=== PATIENT | female | born 1955 | race Caucasian/White ===

== ENCOUNTER 2024-09-08 10:54 | Outpatient (AMB) | payer MEDICARE, SELFPAY ==
--- OUTSIDE RECORDS SUMMARY | 2024-09-08 11:05 | XMS_ITS | Data Portability ---
Author Organization [facility], Main Office Address [address] [facility] [address] [place] [id number] Care Team Providers Care Director Chemistry Name Role Phone [facility] Sports [facility] ine ARANZA CARDENAS Educational Guidance Counselor [phone] RODRÍGUEZ ROSARIO 7Th Grade Teacher IRASEMA HART Cardiac Exercise Specialist ROSARIO BRITT Primary Care Provider Assessment Encounter Date Assessment Date Assessment LastModified by Organization Details LastModified Time 06/15/2022 06/15/2022 This service was provided using telemedicine. Patient consented to video & audio visit Patient was located in the [facility]. Provider was located in the office. No other persons participated in the telemedicine visit except for the patient unless otherwise indicated here. Total time of visit was 23 minutes. Not available 06/15/2022 10:53:43 09/29/2023 09/29/2023 Discussed with patient the signs/symptoms warranted for a return to office visit and/or an ER visit. Patient understood and agreed with the plan. [email or web address] Not available 09/29/2023 11:05:57 07/29/2024 07/29/2024 Based on the patient's history and physical exam, the clinical impression is lumbago with sciatica. Her blood pressure is elevated, likely due to pain. However, given the diagnosis of hypertension, I am avoiding NSAIDs. -Prescribed a Medrol Dose Pack (oral methylprednisolo ne) to reduce inflammation. -Prescribed gabapentin for symptomatic relief. -Patient has taken gabapentin in the past. -Discussed risk of sedation; patient was advised not to operate motor vehicles or heavy machinery until she knows how the medication affects her. -Referred to physical therapy for core strengthening and pain management. -Patient is to follow up with her primary provider in 2 months, by which time she should have completed at least 6 weeks of PT. If symptoms persist beyond PT, we will consider: -Lumbar spine X-ray and/or MRI to further evaluate structural causes. -Based on imaging results, possible referral to physiatry or neurosurgery. -If imaging is noncontributory, further evaluation with EMG and workup for peripheral neuropathy may be considered. -However, the radiating pattern of pain suggests a spinal etiology rather than primary peripheral neuropathy. Regarding elevated blood pressure: -Patient is asymptomatic and currently on HCTZ. -Plan is to re-evaluate in 2 months, with the expectation that pain improvement may reduce BP as well. Red flag symptoms were reviewed. Patient was advised to seek emergency care if she experiences: -New or worsening numbness or weakness in the legs -Loss of bowel or bladder control -Inability to walk -Severe or rapidly worsening pain Patient understands and agrees with the plan. [email or web address] Not available 07/29/2024 10:35:19 Plan of Treatment Reminders Order Date Submit Date Provider Last Modified By Organization Details Last Modified Time Details Appointments None recor ded. Lab vitam in B12 + folat e, serum or blood 2023 [facility] (Centralized Electronic Ordering - All Locations), Patient Can Go To The Location Of Their Choice, [id number] 4 06:09:22 lipid panel , serum 2023 024 [facility], [address], [place], [address], 4 06:09:21 BMP, serum or plasm a 2023 024 [facility], [address], [place], [address], 4 06:09:20 CBC w/ auto diff 2023 [facility], [address], [place], [address], 4 06:09:19 TSH, ultra -sens itive , serum 2023 024 [facility], [address], [place], [address], 4 06:09:23 lipid panel , serum 2022 023 [facility], [address], [address], [place], [address], 3 15:15:44 BMP, serum or plasm a 2022 023 [facility], [address], [address], [place], [address], 3 15:15:42 CBC w/ auto diff 2022 023 [facility], [address], [address], [place], [address], 3 14:55:04 TSH, serum or plasm a 2022 023 [facility], [address], [address], [place], [address], 3 15:33:42 Referral physi carlos susana pist refer ral - Pleas e see for LBP 2024 025 [facility]MA Not available 5 06:07:46 Procedures colon oscop y akila rice (PROC ) - pt would like to be booke d in mid Febua ry [address] [facility], [address] [place], [address], 5 11:39:57 Surgeries None recor ded. Imaging MAMMO , akila rice, bilat eral 2023 024 [email or web address] Not available 5 10:57:59 XR, hip, unila teral , 2 or 3 view - left sided hip pain- sciat ica 2023 024 [facility], [address], [place], [address], 4 19:17:47 Medication Orders Medro l (Mahamed) 4 mg table ts in a dose pack 2024 025 [id number], [address] [facility], [place], [place], [id number], 5 10:23:22 gabap entin 100 mg capsu le 2024 025 [facility] #[id number], [address] [facility], [place], [place], [id number], 5 10:23:25 eryth romyc in 5 mg/gr am (0.5 %) eye ointm ent 2022 023 [email or web address] os [facility] #[id number], [address] [facility], [place], [place], [id number], 4 11:00:52 Patient TargetsNo targets recorded. Patient Instructions Encounter Date Encounter Id Patient Instructions Last Modified By Organization Details Last Modified Time 06/05/2022 [id number] well visit, over 65: care instructions Not available 06/05/2022 11:33:14 fall prevention education Not available 06/05/2022 11:33:14 06/15/2022 [id number] styes and chalazia: care instructions Not available 06/15/2022 10:54:13 12/17/2023 [id number] advance care planning: care instructions Not available 12/17/2023 11:02:03 osteoporosis: care instructions Not available 12/17/2023 11:02:04 well visit, over 65: care instructions Not available 12/17/2023 11:02:05 preventing falls : care instructions Not available 12/17/2023 11:02:05 colon cancer screening: care instructions Not available 12/17/2023 11:02:04 high blood pressure: care instructions Not available 12/17/2023 11:02:03 learning about high blood pressure Not available 12/17/2023 11:02:04 07/29/2024 [id number] high blood pressure: care instructions [email or web address] Not available 07/29/2024 10:23:10 learning about high blood pressure [email or web address] Not available 07/29/2024 10:23:10 Reason for Referral Physical Therapist Referral for Acute back pain with sciatica Please see for LBP Referring Physician: Kassandra Ruiz, Family Medicine, Encounter Date: 07/29/2024 Results Created Date Observation Date Name Description Value Unit Range Abnormal Flag Note LastModifiedBy Organization Detail LastModifiedTime 03/16/19 25 03/14/2024 TISSU E EXAM final diagnosis Cecum, polyp: Tubul ar adeno ma. Elect basia cramer d by Alethea el MD on 2024 at 10:54 AM Not Available [address], [address], 03/16/2024 10:56:36 03/16/19 25 03/14/2024 TISSU E EXAM clinical information Screen ing for colore ctal malign ant neopla sm Polyp Not Available [address], [address], 03/16/2024 10:56:36 03/16/19 25 03/14/2024 TISSU E EXAM gross description A. Large Intest ine, Cecum, polyp: Label ed ceca l polyp . Recei raad in forma ingris, is an appro ximat lorene 0.7 cm, in great est diame ters, rubbe ry, thomas, polyp oid tissu e, which is inked black at the base, wrapp ed in paper and submi tted in toto in one casse tte, one piece , multi ple level s. dvb/D G Not Available [address], [address], 03/16/2024 10:56:36 03/16/19 25 03/14/2024 TISSU E EXAM disclaimer Rosemarie s other eid speci fied, all tissu e is 10% NB forma ingris fixed and paraf fin embed ded. Not Available [address], [address], 03/16/2024 10:56:36 03/16/19 25 03/16/2024 TISSU E EXAM .note See Note Origi nal Order ing Provi glenna: [facility] - [facility] atory - [address] [facility], Lavinia ambrosio d, [place] [place] [address] Not Available [address], [address], 03/16/2024 10:56:36 07/09/19 23 07/08/2022 COMPL ETE CBC WITH DIFF WBC 3.5 K/mm3 (4.0-1 1.0) low Not Available [facility] (Centralized Electronic Ordering - All Locations) Patient Can Go To The Location Of Their Choice, 07/08/2022 14:55:04 07/09/1907/08/2022 COMPL ETE CBC WITH DIFF RBC 3.99 M/mm3 (4.20- 5.40) low Not Available [facility] (Centralized Electronic Ordering - All Locations) Patient Can Go To The Location Of Their Choice, 07/08/2022 14:55:04 07/09/1907/08/2022 COMPL ETE CBC WITH DIFF HGB 12.7 gm/dL (11.7- 15.5) Not Available [facility] (Centralized Electronic Ordering - All Locations) Patient Can Go To The Location Of Their Choice, 07/08/2022 14:55:04 07/09/1907/08/2022 COMPL ETE CBC WITH DIFF HCT 39.2 % (35.7- 45.8) Not Available [facility] (Centralized Electronic Ordering - All Locations) Patient Can Go To The Location Of Their Choice, 07/08/2022 14:55:04 07/09/1907/08/2022 COMPL ETE CBC WITH DIFF MCV 98.2 fL (80.0- 100.0) Not Available [facility] ([facility]ized Electronic Ordering - All Locations) Patient Can Go To The Location Of Their Choice, 07/08/2022 14:55:04 07/09/1907/08/2022 COMPL ETE CBC WITH DIFF MCH 31.8 pg (27.0- 34.0) Not Available [facility] (Centralized Electronic Ordering - All Locations) Patient Can Go To The Location Of Their Choice, 07/08/2022 14:55:04 07/09/1907/08/2022 COMPL ETE CBC WITH DIFF MCHC 32.4 g/dL (33.0- 37.0) low Not Available [facility] ([facility] Electronic Ordering - All Locations) Patient Can Go To The Location Of Their Choice, 07/08/2022 14:55:04 07/09/1907/08/2022 COMPL ETE CBC WITH DIFF plt 241 K/mm3 (150-4 60) Not Available [facility] ([facility]ized Electronic Ordering - All Locations) Patient Can Go To The Location Of Their Choice, 07/08/2022 14:55:04 07/09/1907/08/2022 COMPL ETE CBC WITH DIFF RDW-SD 41.1 fL (<47.0 ) Not Available [facility] (Centralized Electronic Ordering - All Locations) Patient Can Go To The Location Of Their Choice, 07/08/2022 14:55:04 07/09/1907/08/2022 COMPL ETE CBC WITH DIFF MPV 11.7 fL (9.4-1 2.4) Not Available [facility] (Centralized Electronic Ordering - All Locations) Patient Can Go To The Location Of Their Choice, 07/08/2022 14:55:04 07/09/1907/08/2022 COMPL ETE CBC WITH DIFF automated NRBC 0.0 #/100 _WBC' s Not Available [facility] ([facility]ized Electronic Ordering - All Locations) Patient Can Go To The Location Of Their Choice, 07/08/2022 14:55:04 07/09/1907/08/2022 COMPL ETE CBC WITH DIFF abs. NRBC 0.0 K/mm3 Not Available [facility] ([facility] Ordering - All Locations) Patient Can Go To The Location Of Their Choice, 07/08/2022 14:55:04 07/09/1907/08/2022 COMPL ETE CBC WITH DIFF neut # 1.5 K/mm3 (1.3-7 .0) Not Available [facility] ([facility] Ordering - All Locations) Patient Can Go To The Location Of Their Choice, 07/08/2022 14:55:04 07/09/1907/08/2022 COMPL ETE CBC WITH DIFF lymph # 1.7 K/mm3 (0.8-3 .1) Not Available [facility] ([facility] Ordering - All Locations) Patient Can Go To The Location Of Their Choice, 07/08/2022 14:55:04 07/09/1907/08/2022 COMPL ETE CBC WITH DIFF mono# 0.3 K/mm3 (0.4-0 .9) low Not Available [facility] ([facility] Ordering - All Locations) Patient Can Go To The Location Of Their Choice, 07/08/2022 14:55:04 07/09/1907/08/2022 COMPL ETE CBC WITH DIFF eo # 0.1 K/mm3 (0.0-0 .4) Not Available [facility] ([facility] Ordering - All Locations) Patient Can Go To The Location Of Their Choice, 07/08/2022 14:55:04 07/09/1907/08/2022 COMPL ETE CBC WITH DIFF baso # 0.0 K/mm3 (0.0-0 .1) Not Available [facility] ([facility] Ordering - All Locations) Patient Can Go To The Location Of Their Choice, 07/08/2022 14:55:04 07/09/1907/08/2022 COMPL ETE CBC WITH DIFF abs. imm gran 0.0 K/mm3 Not Available [facility] ([facility] Order[facility] - All Locations) Patient Can Go To The Location Of Their Choice, 07/08/2022 14:55:04 07/09/1907/08/2022 COMPL ETE CBC WITH DIFF neut 41.5 % (44-76 ) low Not Available [facility] ([facility] Ordering - All Locations) Patient Can Go To The Location Of Their Choice, 07/08/2022 14:55:04 07/09/1907/08/2022 COMPL ETE CBC WITH DIFF lymph 47.2 % (15-43 ) high Not Available [facility] ([facility] Ordering - All Locations) Patient Can Go To The Location Of Their Choice, 07/08/2022 14:55:04 07/09/1907/08/2022 COMPL ETE CBC WITH DIFF monocyte 7.9 % (4.5-1 0.5) Not Available [facility] ([facility] Order[facility] - All Locations) Patient Can Go To The Location Of Their Choice, 07/08/2022 14:55:04 07/09/1907/08/2022 COMPL ETE CBC WITH DIFF eo 2.0 % (0-6) Not Available [facility] ([facility] Ordering - All Locations) Patient Can Go To The Location Of Their Choice, 07/08/2022 14:55:04 07/09/1907/08/2022 COMPL ETE CBC WITH DIFF baso 1.1 % (0-2) Not Available [facility] ([facility] Ordering - All Locations) Patient Can Go To The Location Of Their Choice, 07/08/2022 14:55:04 07/09/1907/08/2022 COMPL ETE CBC WITH DIFF imm gran 0.3 % Not Available [facility] ([facility] Ordering - All Locations) Patient Can Go To The Location Of Their Choice, 07/08/2022 14:55:04 07/09/1907/08/2022 BASIC METAB OLIC PANEL glucose 87 mg/dL (70-99 ) Not Available [facility] ([facility] Ordering - All Locations) Patient Can Go To The Location Of Their Choice, 07/08/2022 15:15:42 07/09/1907/08/2022 BASIC METAB OLIC PANEL BUN 11 mg/dL (8-23) Not Available [facility] ([facility] Ordering - All Locations) Patient Can Go To The Location Of Their Choice, 07/08/2022 15:15:42 07/09/1907/08/2022 BASIC METAB OLIC PANEL creatinine 0.8 mg/dL (0.5-1 .0) Not Available [facility] ([facility] Order[facility] - All Locations) Patient Can Go To The Location Of Their Choice, 07/08/2022 15:15:42 07/09/1907/08/2022 BASIC METAB OLIC PANEL sodium 141 mmol/ L (133-1 45) Not Available [facility] ([facility] Ordering - All Locations) Patient Can Go To The Location Of Their Choice, 07/08/2022 15:15:42 07/09/1907/08/2022 BASIC METAB OLIC PANEL potassium 4.0 mmol/ L (3.6-5 .2) Not Available [facility] ([facility] Ordering - All Locations) Patient Can Go To The Location Of Their Choice, 07/08/2022 15:15:42 07/09/1907/08/2022 BASIC METAB OLIC PANEL chloride 105 mmol/ L (98-10 7) Not Available [facility] ([facility] Ordering - All Locations) Patient Can Go To The Location Of Their Choice, 07/08/2022 15:15:42 07/09/1907/08/2022 BASIC METAB OLIC PANEL bicarbonate 28 mmol/ L (22-29 ) Not Available [facility] ([facility] Order[facility] - All Locations) Patient Can Go To The Location Of Their Choice, 07/08/2022 15:15:42 07/09/1907/08/2022 BASIC METAB OLIC PANEL anion gap 8 (4-17) Not Available [facility] ([facility] Ordering - All Locations) Patient Can Go To The Location Of Their Choice, 07/08/2022 15:15:42 07/09/1907/08/2022 BASIC METAB OLIC PANEL calcium 9.4 mg/dL (8.6-1 0.5) Not Available [facility] ([facility] Ordering - All Locations) Patient Can Go To The Location Of Their Choice, 07/08/2022 15:15:42 07/09/1907/08/2022 BASIC METAB OLIC PANEL estimated GFR creatinine 83 mL/mi n/1.7 3_M2 Creat inine based estim ated glome rular filtr ation (eGFR ) in adult s is calcu lated using the Natio nal Kidne y Found ation recom elizabeth d 2020 CKD-E PI equat ion. Estim ates GFR from serum creat inine , age and sex. Not Available [facility] ([facility] Ordering - All Locations) Patient Can Go To The Location Of Their Choice, 07/08/2022 15:15:42 07/09/1907/08/2022 LIPID PANEL cholesterol, total 189 mg/dL (<200) Not Available [facility] ([facility] - All Locations) Patient Can Go To The Location Of Their Choice, 07/08/2022 15:15:44 07/09/1907/08/2022 LIPID PANEL triglyceride 76 mg/dL (<150) Not Available [facility] ([facility] Locations) Patient Can Go To The Location Of Their Choice, 07/08/2022 15:15:44 07/09/1907/08/2022 LIPID PANEL HDL chol 66 mg/dL (>39) Not Available [facility] ([facility] Ordering - All Locations) Patient Can Go To The Location Of Their Choice, 07/08/2022 15:15:44 07/09/1907/08/2022 LIPID PANEL LDL cholesterol, calculated 108 mg/dL (0-130 ) Not Available [facility] ([facility] Order[facility] - All Locations) Patient Can Go To The Location Of Their Choice, 07/08/2022 15:15:44 07/09/1907/08/2022 LIPID PANEL non HDL cholesterol (calc) 123 mg/dL (<160) Not Available [facility] ([facility] - All Locations) Patient Can Go To The Location Of Their Choice, 07/08/2022 15:15:44 07/09/1907/08/2022 TSH WITH REFLE X TO FT4 TSH 0.76 uIU/m L (0.4-4 .2) Not Available [facility] ([facility] - All Locations) Patient Can Go To The Location Of Their Choice, 07/08/2022 15:33:42 12/17/19 24 12/17/2023 CBC WITH DIFFE RENTI AL/PL ATELE T WBC 4.3 x10e3 /uL 3.4-10 .8 normal Not Available [facility] ([facility]) [address] [place], [address], 12/18/2023 06:09:19 12/17/19 24 12/17/2023 CBC WITH DIFFE RENTI AL/PL ATELE T RBC 3.81 x10e6 /uL 3.77-5 .28 normal Not Available [facility] ([facility]) [address] [place], [address], 12/18/2023 06:09:19 12/17/1912/17/2023 CBC WITH DIFFE RENTI AL/PL ATELE T hemoglobin 12.2 g/dL 11.1-1 5.9 normal Not Available [facility] ([facility]) [address] [place], [address], 12/18/2023 06:09:19 12/17/19 24 12/17/2023 CBC WITH DIFFE RENTI AL/PL ATELE T hematocrit 37.9 % 34.0-4 6.6 normal Not Available [facility] ([facility]) [address] [place], [address], 12/18/2023 06:09:19 12/17/19 24 12/17/2023 CBC WITH DIFFE RENTI AL/PL ATELE T MCV 100 fL 79-97 above high normal Not Available [facility] ([facility]) [address] [place], [address], 12/18/2023 06:09:19 12/17/1912/17/2023 CBC WITH DIFFE RENTI AL/PL ATELE T MCH 32.0 pg 26.6-3 3.0 normal Not Available [facility] ([facility]) [address] [place], [address], 12/18/2023 06:09:19 12/17/19 24 12/17/2023 CBC WITH DIFFE RENTI AL/PL ATELE T MCHC 32.2 g/dL 31.5-3 5.7 normal Not Available [facility] ([facility]) [address] [facility], [place], [address], 12/18/2023 06:09:19 12/17/19 24 12/17/2023 CBC WITH DIFFE RENTI AL/PL ATELE T RDW 11.9 % 11.7-1 5.4 Not Available [facility] ([facility]) [address] [facility], [place], [address], 12/18/2023 06:09:19 12/17/19 24 12/17/2023 CBC WITH DIFFE RENTI AL/PL ATELE T platelets 240 x10e3 /uL 150-45 0 normal Not Available [facility] ([facility]) [address] [facility], [place], [address], 12/18/2023 06:09:19 12/17/19 24 12/17/2023 CBC WITH DIFFE RENTI AL/PL ATELE T neutrophils 51 % not estab. normal Not Available [facility] ([facility]) [address] [facility], [place], [address], 12/18/2023 06:09:19 12/17/19 24 12/17/2023 CBC WITH DIFFE RENTI AL/PL ATELE T lymphs 37 % not estab. normal Not Available [facility] ([facility]) [address] [facility], [place], [address], 12/18/2023 06:09:19 12/17/19 24 12/17/2023 CBC WITH DIFFE RENTI AL/PL ATELE T monocytes 8 % not estab. normal Not Available [facility] ([facility]) [address] [facility], [place], [address], 12/18/2023 06:09:19 12/17/19 24 12/17/2023 CBC WITH DIFFE RENTI AL/PL ATELE T eos 3 % not estab. normal Not Available [facility] ([facility]) [address] [facility], [place], [address], 12/18/2023 06:09:19 12/17/1912/17/2023 CBC WITH DIFFE RENTI AL/PL ATELE T basos 1 % not estab. normal Not Available [facility] ([facility]) [address] [facility], [place], [address], 12/18/2023 06:09:19 12/17/19 24 12/17/2023 CBC WITH DIFFE RENTI AL/PL ATELE T immature cells BENCH ASSEMBLY INSPECTOR Not Available [facility] ([facility]) [address] [facility], [place], [address], 12/18/2023 06:09:19 12/17/19 24 12/17/2023 CBC WITH DIFFE RENTI AL/PL ATELE T neutrophils (absolute) 2.2 x10e3 /uL 1.4-7. 0 normal Not Available [facility] ([facility]) [address] [facility], [place], [address], 12/18/2023 06:09:19 12/17/19 24 12/17/2023 CBC WITH DIFFE RENTI AL/PL ATELE T lymphs (absolute) 1.6 x10e3 /uL 0.7-3. 1 normal Not Available [facility] ([facility]) [address] [place], [address], 12/18/2023 06:09:19 12/17/19 24 12/17/2023 CBC WITH DIFFE RENTI AL/PL ATELE T monocytes(ab solute) 0.3 x10e3 /uL 0.1-0. 9 normal Not Available [facility] ([facility]) [address] [place], [address], 12/18/2023 06:09:19 12/17/19 24 12/17/2023 CBC WITH DIFFE RENTI AL/PL ATELE T eos (absolute) 0.1 x10e3 /uL 0.0-0. 4 normal Not Available [facility] ([facility]) [address] [facility], [place], [address], 12/18/2023 06:09:19 12/17/19 24 12/17/2023 CBC WITH DIFFE RENTI AL/PL ATELE T baso (absolute) 0.0 x10e3 /uL 0.0-0. 2 normal Not Available [facility] ([facility]) [address] [facility], [place], [address], 12/18/2023 06:09:19 12/17/19 24 12/17/2023 CBC WITH DIFFE RENTI AL/PL ATELE T immature granulocytes 0 % not estab. Not Available [facility] ([facility]) [address] [facility], [place], [address], 12/18/2023 06:09:19 12/17/19 24 12/17/2023 CBC WITH DIFFE RENTI AL/PL ATELE T immature grans (abs) 0.0 x10e3 /uL 0.0-0. 1 Not Available [facility] ([facility]) [address] [facility], [place], [address], 12/18/2023 06:09:19 12/17/19 24 12/17/2023 CBC WITH DIFFE RENTI AL/PL ATELE T NRBC BENCH ASSEMBLY INSPECTOR Not Available [facility] ([facility]) [address] [facility], [place], [address], 12/18/2023 06:09:19 12/17/19 24 12/17/2023 CBC WITH DIFFE RENTI AL/PL ATELE T hematology comments: BENCH ASSEMBLY INSPECTOR Not Available [facility] ([facility]) [address] [facility], [place], [address], 12/18/2023 06:09:19 12/17/19 24 12/18/2023 BASIC METAB OLIC PANEL (8) glucose 85 mg/dL 70-99 normal Not Available [facility] ([facility]) [address] [place], [address], 12/18/2023 06:09:20 12/17/19 24 12/18/2023 BASIC METAB OLIC PANEL (8) BUN 11 mg/dL 8-27 normal Not Available [facility] ([facility]) [address] [place], [address], 12/18/2023 06:09:20 12/17/19 24 12/18/2023 BASIC METAB OLIC PANEL (8) creatinine 0.90 mg/dL 0.57-1 .00 normal Not Available [facility] ([facility]) [address] [facility] [place], [address], 12/18/2023 06:09:20 12/17/19 24 12/18/2023 BASIC METAB OLIC PANEL (8) eGFR 70 mL/mi n/1.7 3 >59 normal Not Available [facility] ([facility]) [address] [facility] [place], [address], 12/18/2023 06:09:20 12/17/1912/18/2023 BASIC METAB OLIC PANEL (8) BUN/creatini ne ratio 12 12-28 normal Not Available [facility] ([facility]) [address] [facility] [place], [address], 12/18/2023 06:09:20 12/17/1912/18/2023 BASIC METAB OLIC PANEL (8) sodium 142 mmol/ L 134-14 4 normal Not Available [facility] ([facility]) [address] [facility] [place], [address], 12/18/2023 06:09:20 12/17/19 24 12/18/2023 BASIC METAB OLIC PANEL (8) potassium 4.1 mmol/ L 3.5-5. 2 normal Not Available [facility] ([facility]) [address] [facility] [place], [address], 12/18/2023 06:09:20 12/17/19 24 12/18/2023 BASIC METAB OLIC PANEL (8) chloride 106 mmol/ L 96-106 normal Not Available [facility] ([facility]) [address] [facility] [place], [address], 12/18/2023 06:09:20 12/17/19 24 12/18/2023 BASIC METAB OLIC PANEL (8) carbon dioxide, total 21 mmol/ L 20-29 normal Not Available [facility] ([facility]) [address] [facility] [place], [address], 12/18/2023 06:09:20 12/17/19 24 12/18/2023 BASIC METAB OLIC PANEL (8) calcium 9.3 mg/dL 8.7-10 .3 normal Not Available [facility] ([facility]) [address] [place], [address], 12/18/2023 06:09:20 12/17/19 24 12/18/2023 LIPID PANEL cholesterol, total 182 mg/dL 100-19 9 normal Not Available [facility] ([facility]) [address] [facility] [place], [address], 12/18/2023 06:09:21 12/17/19 24 12/18/2023 LIPID PANEL triglyceride s 99 mg/dL 0-149 normal Not Available [facility] ([facility]) [address] [place], [address], 12/18/2023 06:09:21 12/17/19 24 12/18/2023 LIPID PANEL HDL cholesterol 56 mg/dL >39 normal Not Available [facility] ([facility]) [address] [place], [address], 12/18/2023 06:09:21 12/17/19 24 12/18/2023 LIPID PANEL VLDL cholesterol carlos 18 mg/dL 5-40 Not Available [facility] ([facility]) [address] [place], [address], 12/18/2023 06:09:21 12/17/19 24 12/18/2023 LIPID PANEL LDL chol calc ([facility]) 108 mg/dL 0-99 above high normal Not Available [facility] ([facility]) [address], [place], [address], 12/18/2023 06:09:21 12/17/19 24 12/18/2023 LIPID PANEL LDL calc comment: [employer] Not Available [facility] ([facility]) [address] [facility], [place], [address], 12/18/2023 06:09:21 12/17/19 24 12/18/2023 VITAM IN B12 AND FOLAT E vitamin B12 248 pg/mL 232-12 45 normal Not Available [facility] ([facility]) [address] [facility], [place], [address], 12/18/2023 06:09:22 12/17/1912/18/2023 VITAM IN B12 AND FOLAT E folate (folic acid), serum 12.3 NG/mL >3.0 normal A serum folat e mary ellen ntrat ion of less than 3.1 ng/mL is consi dered to repre sent clini carlos defic iency . Not Available [facility] ([facility]) [address] [facility], [place], [address], 12/18/2023 06:09:22 12/17/1912/18/2023 TSH RFX ON ABNOR MAL TO FREE T4 TSH 0.580 uIU/m L 0.450- 4.500 normal Not Available [facility] ([facility]) [address] [facility], [place], [address], 12/18/2023 06:09:22 04/26/19 24 04/22/2023 MAMMO , scree krystal, digit al, bilat eral No observ ation record ed. [facility] ([facility]) [address] [place], [address], 04/26/2023 08:15:51 10/01/19 24 10/01/2023 XR, hip, unila teral , 2 or 3 view No observ ation record ed. [facility] [address] [place], [address], 10/04/2023 11:26:21 10/01/19 24 10/01/2023 XR, hip, unila teral , 2 or 3 view Hip Comp 2 Views Left Reason : pain COMPAR XAVI: None. FINDIN GS: No fractu re or disloc ation. A bone island is seen in the left inferi or pubic ramus. Well preser rada joint space. Normal femora l head contou r withou t eviden ce of avascu lar necros is. Normal soft tissue s. IMPRES FRANTZ: No acute displa taylor fractu re or signif icant degene rative change . WSN: [id number] Orderi ng Physic brittany: Sheree Ivan Dictat ed By: Marie Ambrose ra, MD Dictat ed Date/T liliam: 7:08 pm Review ed By: Marie Ambrose ra, MD Signed By: Marie Ambrose ra, MD Signed Date/T liliam: 7:08 pm Transc ribed By: MYRA Transc ribed Date/T liliam: 7:08 pm Patien t Class: Outpat ient [facility] (Outpt Imaging) [address] [place], [address], 10/04/2023 11:26:22 01/26/20 24 01/26/2024 bd bone densi ty dxa axial skele ton See Note [facility] , a member of [employer] Patien t Name: ANGELES RAUSCH IELD Date of : 1955 Reason for Exam: m81.0 Exam Date: 2023 110907 EST Report Status : Final Orderi ng Provid er: IRASEMA UMANZOR PCP: PIETRO BARR STUDY: DUAL ENERGY X-RAY ABSORP TIOMET RY / DXA REASON FOR EXAM: Female , 68 years old m81.0 TECHNI QUE: Bone Minera l Densit y (BMD) measur ements of the lumbar spine and left hip were obtain ed using [employer] charmaine W (S/N [id number]) . COMPAR XAVI: May 28, 2020 FINDIN GS: L1-L4 BMD: 0.750 g/cm2 L1-L4 T score: -2.7. This corres ponds to osteop orosis . This repres ents a 3.3* % increa se in bone densit y compar ed with prior exam from May 28, 2020. Left femora l neck BMD: 0.542 g/cm2 Left femora l neck T score: -2.8. This corres ponds to osteop orosis . Left total hip BMD: 0.670 g/cm2 Left total hip T score: -2.2. This corres ponds to osteop enia. This repres ents a 5.7* % increa se in bone densit y compar ed with prior exam from May 28, 2020. * - Indica to a statis ticall y signif icant change . IMPRES FRANTZ: Osteop orosis Refere nce Inform ation: The T-scor e is the number of standa rd deviat ions above or below the standa rd which is normal for young adults at their peak bone minera l densit y. The World Health Organi zation (WHO) interp rets the T-scor es as follow s: At or above -1 SD Normal bone densit y Betwee n -1 and -2.5 SD Osteop enia At or below -2.5 SD Osteop orosis ------ -- FINAL REPORT ------ -- Dictat ed By: Arvin Pete Dictat ed Date: 2023 18:09 ET Assign ed Physic brittany: Arvin Pete Review ed and Electr onical ly Signed By: Arvin Pete Signed Date: 2023 18:11 ET Workst ation ID: [id number] Transc ribed By: Self Edit Transc ribed Date: 2023 18:09 ET [facility] [address] [facility], [place], [address], 01/26/2024 19:17:33 Result Notes Documentation Provider Name and Address Organization Details Recorded Time Xr, Hip, Unilateral, 2 Or 3 View : Hip Comp 2 Views Left Reason: pain COMPARISON: None. FINDINGS: No fracture or dislocation. A bone island is seen in the left inferior pubic ramus. Well preserved joint space. Normal femoral head contour without evidence of avascular necrosis. Normal soft tissues. IMPRESSION: No acute displaced fracture or significant degenerative change. WSN: [id number] Ordering Physician: Sheree Ivan Dictated By: Marie Eckert MD Dictated Date/Time: 10/01/23 7:08 pm Reviewed By: Marie Eckert MD Signed By: Marie Eckert MD Signed Date/Time: 10/01/23 7:08 pm Transcribed By: MYRA Transcribed Date/Time: 10/01/23 7:08 pm Patient Class: Outpatient PATRICIO MONTGOMERY [address] [address], [place], [address], [facility] 10/04/2023 10:51:48 Problems Name Problem SNOMED Code Status Onset Date Resolution Date Notes Provider Name and Address Organization Details Recorded Time Weight decrease d 171870847 Completed 02/03/2016 Leila garcia [facility] 6 15:31:53 Sciatica 17363176 Completed 02/03/2016 Leila garcia [facility] 6 15:31:50 Administ ration of bacteria l and viral vaccine Completed 201009/05/2013 RECORDED 12/19/19 11 9:02AM BY HAYLEE CLINTON, OFFICE VISIT Not Available [facility] 4 14:13:56 Administ ration of bacteria l and viral vaccine Completed 201009/25/2013 RECORDED 12/19/19 11 9:02AM BY HAYLEE CLINTON, OFFICE VISIT Not Available [facility] 4 06:37:16 Screenin g for malignan t neoplasm of breast Completed 201109/05/2013 RECORDED 12/23/19 12 8:57AM BY JESUS CONNOLLY ON/ADDEN DUM Leila garcia, [facility] 6 15:31:59 Cellulit is [id number] Completed 201109/05/2013 IMPRESSI ON: PT WAS HERE WITH HER MOM, HAD SOME REDNESS AND SWELLING AWAY FORM SITE OF FLU SHOT, WILL TX WITH 7 DAYS OF KEFLEX AND PT TO TAKE BENADRYL AT NIGHT, NO HX OF MRSA, UNILIKEL Y INFECITO N BUT WILL TX TO BE SURE; RECORDED 12/23/19 12 8:57AM BY JESUS CONNOLLY ON/ADDEN DUM Not Available [facility] 4 14:13:55 Screenin g for malignan t neoplasm of cervix Completed 201109/05/2013 RECORDED 12/23/19 12 8:57AM BY JESUS CONNOLLY ON/ADDEN DUM Not Available [facility] 4 14:13:55 Screenin g for malignan t neoplasm of colon Completed 201109/05/2013 RECORDED 12/23/19 12 8:57AM BY JESUS CONNOLLY ON/ADDEN DUM Not Available [facility] 4 14:13:55 [facility] hyperten frantz 86089038 Completed 201109/05/2013 IMPRESSI ON: BP IS UP ON LISINOPR IL 10MG ALONE, PT WITH HIVES, UNCLEAR IF A BIT BETTER OFF HCTZ SINCE BCKED DOWN ON ZYRTEC, WILL INCREASE LISINOPR IL TO 20MG A DAY AND HOLD ON HCTZ.; RECORDED 12/23/19 12 8:57AM BY JESUS CONNOLLY ON/ADDEN DUM JOCELYN Byrnes, [facility] 0 09:18:56 Mary milner [id number] Completed 201109/05/2013 IMPRESSI ON: STILL THERE BUT A BIT BETTER, TAKE ZYRTEC DAILY; RECORDED 12/23/19 12 8:57AM BY JESUS CONNOLLY ON/ADDEN DUM Not Available [facility] 4 14:13:55 Examinat ion for suspecte d mental disorder Completed 201109/05/2013 RECORDED 12/23/19 12 8:57AM BY JESUS CONNOLLY ON/ADDEN DUM Not Available [facility] 4 14:13:56 Adult health examinat ion Completed 201109/05/2013 IMPRESSI ON: PAP, MAMMO AND COLONOSC OPY UTD, ACTIVE, FEELS WELL; RECORDED 12/23/19 12 8:57AM BY JESUS CONNOLLY ON/ADDEN DUM JOCELYN Connolly, [facility] 6 15:05:13 Screenin g for malignan t neoplasm of breast Completed 201109/25/2013 RECORDED 12/23/19 12 8:57AM BY JESUS CONNOLLY ON/ADDEN DUM [facility] 6 15:31:59 Cellulit is 538152310 Completed 201109/25/2013 IMPRESSI ON: PT WAS HERE WITH HER MOM, HAD SOME REDNESS AND SWELLING AWAY FORM SITE OF FLU SHOT, WILL TX WITH 7 DAYS OF KEFLEX AND PT TO TAKE BENADRYL AT NIGHT, NO HX OF MRSA, UNILIKEL Y INFECITO N BUT WILL TX TO BE SURE; RECORDED 12/23/19 12 8:57AM BY JESUS CONNOLLY ON/ADDEN DUM Not Available [facility] 4 06:37:16 Screenin g for malignan t neoplasm of cervix Completed 201109/25/2013 RECORDED 12/23/19 12 8:57AM BY JESUS CONNOLLY ON/ADDEN DUM Not Available [facility] 4 06:37:16 Screenin g for malignan t neoplasm of colon Completed 201109/25/2013 RECORDED 12/23/19 12 8:57AM BY JESUS CONNOLLY ON/ADDEN DUM Not Available [facility] 4 06:37:16 Urticari a [id number] Completed 201109/25/2013 IMPRESSI ON: STILL THERE BUT A BIT BETTER, TAKE ZYRTEC DAILY; RECORDED 12/23/19 12 8:57AM BY JESUS CONNOLLY ON/ADDEN DUM Not Available [facility] 4 06:37:16 Examinat ion for suspecte d mental disorder Completed 201109/25/2013 RECORDED 12/23/19 12 8:57AM BY JESUS CONNOLLY ON/ADDEN DUM Not Available [facility] 4 06:37:17 Influenz a vaccine needed 49233515849 06 Completed 201209/05/2013 RECORDED 04/22/19 13 9:23AM BY JESUS CONNOLLY ON/ADDEN DUM Not Available [facility] 4 14:13:56 Influenz a vaccine needed 64605802041 06 Completed 201209/25/2013 RECORDED 04/22/19 13 9:23AM BY JESUS CONNOLLY ON/ADDEN DUM Not Available [facility] 4 06:37:16 Problem, abnormal test 89336674 Completed 201209/05/2013 RECORDED 12/24/19 13 11:04AM BY JESUS CHAVEZ ON/ADDEN DUM Not Available [facility] 4 14:13:54 Patient status finding 519053991 Completed 201202/03/2016 RECORDED 12/24/19 13 11:09AM BY LUIZ KEARNS I, OFFICE VISIT JOCELYN Connolly [facility] 6 15:05:08 Neck pain 29758818 Completed 201202/03/2016 RECORDED 12/24/19 13 11:04AM BY LUIZ KEARNS I, OFFICE VISIT Leila garcia [facility] 6 15:32:05 Dizzines s and giddines s 148584849 Completed 201202/03/2016 RECORDED 12/24/19 13 11:04AM BY LUIZ KEARNS I, OFFICE VISIT Leila garcia [facility] 6 15:31:37 [facility] hyperten frantz 96879874 [facility] 0 09:18:56 Malaise and fatigue 300295602 Completed 201202/03/2016 IMPRESSI ON: CHECK LABS, NO OBVIOUS DEPRESSI ON MORE OVERWHEL MED, PT WILL OWRKO N SOME STRATEGI ES, IF SHE NEEDS HELP WTIH SLEEP OR OTHER SYMPOTMS SHE WILL RETURN; RECORDED 12/24/19 13 12:14PM BY LEILA Mcmillan MD, OFFICE VISIT Leila garcia [facility] 6 15:31:28 Adult health examinat ion Completed 201202/03/2016 IMPRESSI ON: PAP , MAMMO AND COLONOSC OPY ARE UTD, PT NEEDS TO GET MORE EXERCISE , IS FEELING OVERWHEL MED WITH WORK, IT IS AFFECTIN G HER SLEEP, EATING AND BALANCE IN LIFE; RECORDED 12/24/19 13 12:12PM BY LEILA Mcmillan MD, OFFICE VISIT JOCELYN Connolly [facility] 6 15:05:13 Pure hypercho lesterol emia 478872542 Completed 201202/03/2016 RECORDED 12/24/19 13 11:04AM BY LUIZ KEARNS I, OFFICE VISIT Leila garcia [facility] 6 15:31:56 Pain of hip region 98663957 Completed 201209/05/2013 RECORDED 12/24/19 13 11:04AM BY LUIZ KEARNS I, ANNOTATI ON/ADDEN DUM Not Available [facility] 4 14:13:55 Lymphede jocelyn 598697989 Completed 201209/05/2013 IMPRESSI ON: WELL CONTROLL ED ON HCTZ PRN; RECORDED 12/24/19 13 11:04AM BY LUIZ KEARNS I ANNOTATI ON/ADDEN DUM Not Available [facility] 4 14:13:55 Mammogra phy abnormal 989364681 Completed 201209/05/2013 RECORDED 12/24/19 13 11:04AM BY LUIZ KEARNS I ANNOTATI ON/ADDEN DUM Not Available [facility] 4 14:13:55 Postmeno pausal state 05097773 Completed 201206/04/2022 ROSARIO BRITT MD [address] [facility] [address], [facility] [place], [address] , [facility] 3 19:12:14 Immuniza tion refused Completed 201202/14/2020 RECORDED 12/24/19 13 11:16AM BY LUIZ KEARNS I, OFFICE VISIT Ashley Navarro MA null, [facility] 0 09:18:50 Problem, abnormal test 72219353 Completed 201209/25/2013 RECORDED 12/24/19 13 11:04AM BY LUIZ KEARNS I ANNOTATI ON/ADDEN DUM Not Available [facility] 4 06:37:16 Pain of hip region 30734817 Completed 201209/25/2013 RECORDED 12/24/19 13 11:04AM BY ANNE CHAVEZATI ON/ADDEN DUM Not Available [facility] 4 06:37:16 Lymphede ms 162553732 Completed 201209/25/2013 IMPRESSI ON: WELL CONTROLL ED ON HCTZ PRN; RECORDED 12/24/19 13 11:04AM BY LUIZ KEARNS I ANNOTATI ON/ADDEN DUM Not Available [facility] 4 06:37:16 Mammogra phy abnormal 638598288 Completed 201209/25/2013 RECORDED 12/24/19 13 11:04AM BY LUIZ SCHULTZK I, ANNOTATI ON/ADDEN DUM Not Available [facility] 4 06:37:16 Screenin g for malignan t neoplasm of breast Completed 201202/03/2016 RECORDED 12/28/19 13 12:56PM BY ELLIE PEREZ, HISTORIC AL SUMMARY Leila garcia [facility] 6 15:31:59 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 Leila MorrisSonia sabrina null, [facility] 6 15:32:11 Pain in left lower limb 388323854 Completed 201508/05/2016 JOCELYN Connolly, [facility] 7 16:02:58 Pain in left lower limb 532417748 Completed 201602/03/2017 JOCELYN Connolly, [facility] 7 16:02:58 Lumbar radiculo gary 399674365 Active 2023 ROSARIO BRITT MD [address], [place], [address] , [facility] 4 10:43:00 Hyperlip idemia 29382340 Active 2023 ROSARIO BRITT MD [address], [place], [address] , [facility] 4 07:12:04 Osteopor osis 71365798 Active 2023 ROSARIO BRITT MD [address], [place], [address] , [facility] 4 19:17:44 Problem Notes None recorded. Procedures Surgical History Date Name Laterality Status Provider Name and Address Organization Details Recorded Time 03/14/19 25 Colonoscopy completed Kristen Campo [facility] 03/15/2024 09:53:02 12/17/19 24 Advanced Care Planning completed ROSARIO BRITT MD [address] [facility] [address] [facility] [address], [place], [address], [facility] 12/17/2023 07:20:56 04/22/19 24 Mammogram both breasts completed Joyce el [place] [facility] 07/29/2024 09:55:58 04/21/19 23 Most Recent Mammogram completed Kristen Campo [facility] 04/22/2022 11:40:07 06/01/19 21 Date of Last Colonoscopy completed Haylee Clinton [place] [facility] 02/26/2021 14:56:28 07/28/19 19 Date of Last Pap Smear completed Jessica Hwang [facility] 02/29/2020 14:45:54 04/14/19 11 colonoscopy completed Ashley Navarro [place] [facility] 02/14/2020 09:23:11 07/05/18 83 Caesarean Section completed Joyce el [place] [facility] 12/17/2023 10:28:54 Dxa bone density rosalino vrt fx completed Ashley Navarro [place] [facility] 02/14/2020 09:20:21 Imaging Results None recorded. Procedure Notes None recorded. Medical Equipment None Reported. Allergies No known drug allergies Medications Name Sig Start Date Stop Date Status Note LastModified by Organization Details LastModified Time potassium chloride ER 10 mEq capsule,e xtended release 2 IN AM AND ONE IN PM 08/11 completed RECORDED 08/12/19 12 9:28AM BY HAYLEE CLINTON, OFFICE VISIT; Not Available Not Available Not Available Klor-Con 10 mEq tablet,ex tended release A.D. active RECORDED 05/08/19 12 4:14PM BY LEILA Mcmillan MD, ANNOTATI ON/ADDEN DUM; Not Available Not Available Not Available meloxicam 15 mg tablet 09/12 completed Not Available Not Available Not Available prednison e 20 mg tablet DAILY 04/25 completed RECORDED 04/27/19 08 12:49PM BY LEILA Mcmillan MD, MEDICATI ON AUTO-ARTHUR CTIVATIO N; Not Available Not Available Not Available alendrona te 70 mg tablet TAKE 1 BY MOUTH EVERY 7 DAYS IN THE MORNING WITH A FULL GLASS OF WATER ON AN EMPTY STOMACH DO NOT TAKE ANYTHING ELSE OR LIE DOWN FOR 30 MINUTES active Not Available Not Available No t Available quinapril 10 mg-hydroc hlorothia zide 12.5 mg tablet DAILY 2008 active RECORDED 09/14/19 09 11:12AM BY DAHIANA TAN PA-C, JESUS ON/ADDEN DUM; Not Available Not Available Not Available Motrin 800 mg tablet Q 6HRS PRN PAIN 09/11 completed RECORDED 09/12/19 09 10:09PM BY OLEGARIO GUDINO, OFFICE VISIT; Not Available Not Available Not Available cephalexi n 500 mg capsule TAKE 1 CAPSULE BY MOUTH 3 TIMES A DAY FOR 7 DAYS. 02/26 completed Not Available Not Available Not Available erythromy pedro luis 5 mg/gram (0.5 %) eye ointment APPLY 1 CM RIBBON INTO THE LOWER CONJUNCT IVAL SAC(S) IN THE AFFECTED EYE(S) BY OPHTHALM IC ROUTE 3 TIMES PER DAY for 10 days 09/28 completed Not Available Not Available Not Available Calcium-6 00 600 mg (as calcium carbonate 1,500 mg) tablet Take 1 tablet every day by oral route. active Not Available Not Available No t Available hydrochlo rothiazid e 12.5 mg capsule TAKE 1 CAPSULE BY MOUTH EVERY DAY NEEDED active Not Available Not Available No t Available lisinopri l 30 mg tablet TAKE 1 TABLET BY MOUTH EVERY DAY 10/17 completed Not Available Not Available Not Available K-Dur 10 mEq tablet,ex tended release IN AM AND ONE IN PM 09/20 completed RECORDED 09/21/19 10 1:57PM BY JESUS FINNEGAN ON/ADD DUM;THIS ORDER DISCONTI NUED PER MEDI-SPA N. Not Available Not Available Not Available hydrochlo rothiazid e 25 mg tablet QD 08/11 completed RECORDED 08/12/19 12 9:28AM BY HAYLEE CLINTON, OFFICE VISIT; Not Available Not Available Not Available gabapenti n 100 mg capsule TAKE 3 CAPSULES BY MOUTH EVERY 6 TO 8 HOURS NEEDED active Not Available Not Available No t Available methylpre dnisolone 4 mg tablets in a dose pack FOLLOW PACKAGE DIRECTIO NS TAPERING DOSE active Not Available Not Available No t Available lisinopri l 40 mg tablet TAKE 1 TABLET BY MOUTH EVERY DAY DIRECTED active Not Available Not Available No t Available doxycycli ne hyclate 100 mg tablet 06/29 completed Not Available Not Available Not Available rosuvasta tin 10 mg tablet TAKE 1 TABLET BY MOUTH EVERY DAY active Not Available Not Available No t Available Klor-Con M20 mEq tablet,ex tended release TAKE 1 TABLET BY MOUTH EVERY DAY 02/13 completed Not Available Not Available Not Available Vitamin D3 1 gummy po daily active Not Available Not Available No t Available multivita min 1 tablet po daily 12/16 completed Not Available Not Available Not Available Gavilyte- C 240 gram-22.7 2 gram-6.72 gram-5.84 gram oral solution MIX WITH WATER AND DRINK 8 OZ EVERY 10-15 MINUTES UNTIL SOLUTION IS GONE 07/29 completed Not Available Not Available Not Available Vitamin D3 50 mcg (2,000 unit) capsule Take 1 capsule every day by oral route. 06/05 completed Not Available Not Available Not Available potassium chloride ER 20 mEq tablet,ex tended release Take 1 tablet every day by oral route for 30 days. 02/03 completed Not Available Not Available Not Available Vitals Date Recorded Systolic And Diastolic Provider Name and Address Organization Details Last Updated DateTime 06/05/2022 114/82 mm[Hg] ROSARIO BRITT MD [address], [address], [facility] 06/05/2022 12:14:18 Date Recorded Body height Body mass index (BMI) Body weight Heart rate Oxygen saturation Oxygen saturation in Arterial blood by Pulse oximetry Body temperature Systolic And Diastolic Provider Name and Address Organization Details Last Updated DateTime 3 162.56 cm 23.9 kg/m2 43287.0 4 g 55 /min 97 % 97 % 97.6 [degF] 143/77 mm[Hg] Dahiana Brian [facility] 3 11:14:37 Date Recorded Body height Provider Name an d Address Organization Details Last Updated DateTime 06/15/2022 162.56 cm Yani Vargas MA [facility] 06/15/2022 10:27:49 Date Recorded Body height Body mass index (BMI) Body weight Heart rate Oxygen saturation Oxygen saturation in Arterial blood by Pulse oximetry Body temperature Systolic And Diastolic Systolic And Diastolic Provider Name and Address Organization Details Last Updated DateTime 5 162.56 cm 24.5 kg/m2 41069.7 1 g 51 /min 100 % 100 % 97.3 [degF] 149/84 mm[Hg] 144/84 mm[Hg] Joyce sanders MA [facility] 5 10:04:04 Date Recorded Body height Body mass index (BMI) Body weight Heart rate Oxygen saturation Oxygen saturation in Arterial blood by Pulse oximetry Body temperature Systolic And Diastolic Provider Name and Address Organization Details Last Updated DateTime 4 162.56 cm 24 kg/m2 29020.9 3 g 54 /min 99 % 99 % 97.7 [degF] 130/76 mm[Hg] Joyce sanders MA [facility] 4 10:59:03 Date Recorded Body height Body mass index (BMI) Body weight Heart rate Oxygen saturation Oxygen saturation in Arterial blood by Pulse oximetry Body temperature Systolic And Diastolic Provider Name and Address Organization Details Last Updated DateTime 4 162.56 cm 24.2 kg/m2 98455.5 2 g 54 /min 100 % 100 % 97.2 [degF] 119/76 mm[Hg] Joyce sanders MA [facility] 4 10:26:40 Social History Question Answer Notes LastModified by Organizat ion Details LastModified Time Tobacco Smoking Status Never [facility] 12/29/2013 09:28:55 Do You Have An Advance Directive? No [email or web address] Information not available 10/17/2021 Is Blood Transfusion Acceptable In An Emergency? Yes [email or web address] Information not available 01/02/2015 What Is Your Level Of Caffeine Consumption? None [email or web address] Information not available 01/02/2019 How Much Tobacco Do You Chew? None [email or web address] Information not available 01/02/2019 What Type Of Diet Are You Following? REGULAR [email or web address] Information not available 12/29/2013 Which Illicit Or Recreational Drugs Have You Used? None Information not available 02/14/2020 Live Alone Or With Others? With Others [email or web address] Information not available 06/05/2022 Do You Take Precautions To Prevent Distracted Driving? Yes [email or web address] Information not available 01/02/2015 How Often Do You Need To Have Someone Help You When You Read Instructions, Pamphlets, Or Other Written Material From Your Doctor Or Pharmacy? Never Information not available 02/14/2020 Have You Served In The ? No [email or web address] Information not available 01/02/2019 Have You Or Anyone In Your Household Had Any Of The Following Symptoms In The Last 14 Days: Sore Throat, Cough, Chills, Body Aches For Unknown Reasons, Shortness Of Breath For Unknown Reasons, Loss Of Smell, Loss Of Taste, Fever At Or Greater Than 100 Degrees Fahrenheit? No Information not available 02/14/2020 Are You Or Anyone In Your Household A Health Care Provider Or Emergency Responder? No Information not available 02/14/2020 To The Best Of Your Knowledge Have You Been In Close Proximity To Any Individual Who Tested Positive For COVID-19? No Information not available 02/14/2020 *AWV ONLY* Are You Presently Prescribed Opioid Medication By PCP Or Specialist? If YES -Provider Assess The Benefit For Other, Non-opioid Pain Therapies Instead, Even If The Patient Does Not Have OUD But Is Possibly At Risk. No Information not available 02/14/2020 Have You Recently Traveled To A COVID-19 High Risk Area Or Gathering In The Last 10 Days? No [email or web address] Information not available 04/17/2020 What Was The Date Of Your Most Recent Tobacco Screening? 07/29/2024 Information not available 07/29/2024 How Many Children Do You Have? 3 Ashly Worthy Ashlyn Information not available 12/17/2023 Seat Belts Used Routinely Yes [email or web address] Information not available 10/17/2021 Are You Sexually Active? No Information not available 12/17/2023 Smoke Alarm In Home Yes [email or web address] Information not available 10/17/2021 At What Age Did You Start Smoking Tobacco? 0 Information not available 02/14/2020 Are You Passively Exposed To Smoke? No Information not available 07/29/2024 How Much Tobacco Do You Smoke? No Information not available 02/14/2020 General Stress Level Low [email or web address] Information not available 10/17/2021 Do You Use Sunscreen Routinely? Yes [email or web address] Information not available 12/29/2013 How Many Years Have You Smoked Tobacco? 0 Information not available 02/14/2020 Sex: Unknown Functional Status Question Answer Note LastModified by Organizat ion Details LastModified Time Do you use any illicit or recreational drugs? No Information not available 01/22/2022 Do you or have you ever used any other forms of tobacco or nicotine? No [email or web address] Information not available 10/17/2021 What is your level of alcohol consumption? None [email or web address] Information not available 12/29/2013 Do you or have you ever used smokeless tobacco? Never used smokeless tobacco [email or web address] Information not available 01/02/2019 Are you currently employed? No Retired [employer] Information not available 06/05/2022 Are you able to walk? YESWOREST [email or web address] Information not available 10/17/2021 Are you able to care for yourself independently? 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 Never used electronic cigarettes [email or web address] Information not available 10/17/2021 What is your exercise level? Occasional Silver Sneakers [employer] Information not available 06/05/2022 Mental Status None recorded. Family History Relationship Description Onset Age of this Age Resolved Age Notes LastModified by Organization Details LastModified Time Sister Malignant tumor of thyroid gland Not available 10/17 15:58:31 Mother Hypothyroidi sm [email or web address] Not available 10/17 15:58:31 Father Hypertensive disorder [email or web address] Not available 12/29 09:15:49 Notes:No FH of breast or col on cancer Medical History Condition Response Coronary Artery Disease N Other N Gout N Kidney Stones N Blood Diseases N Hyperthyroidism N Breast Cancer N mrsa exposure N Hypothyroidism N Depression N COPD N Lung Disease N Developmental or Behavioral Disorders N Defects or Inherited Disease N Breast Problem N Anesthesia Complications N Headaches/Migraines N Varicose Veins N Anxiety Disorder N Muscle, Joint, or Bone Problems N Obesity N Vision or Eye Problems N Arthritis N Head Injury/Concussion N Polyps N Infertility N Mental Disorder N Congenital Anomalies N Acid Reflux (GERD) N Cancer N Stroke N ADHD N Endometriosis N High Cholesterol N Liver Disease N Headaches N Fibromyalgia N Kidney Disease N Heart Problems N Ear or Hearing Problems N Hospitalizations N Thyroid Problems N GI Problems N Developmental Delay N Acne N Skin Problems N Eating Disorder N Anemia N Constipation N Bladder Problems N Mental Illness N Ovarian Cancer N Diabetes N Bedwetting N Blood Transfusions N Seizures/Epilepsy N Heart Problems/Murmur N Tuberculosis N AIDS/HIV N Congestive Heart Failure (CHF) N Eczema N Diverticulitis N Abuse/Domestic Violence N Asthma N Allergies N Reflux/GERD N Hepatitis N Heart Disease N Pulmonary Embolism N Hypertension Y Chicken Pox N Autism Spectrum Disorder (ASD) N Osteoporosis N Gynecological History Statement/Question Response Date of Last Pap Smear 07/27/2018 Date of Last Colonoscopy 05/31/2020 Most Recent Mammogram 04/20/2022 Obstetrics History GPAL:G 0 P 0 0 0 0 Immunizations Vaccine Type Date Status Note Provider Name and Address Organization Details Recorded Time Influenza, split virus, quadrivalent, preservative 017 completed JOCELYN Connolly [facility] 02/03/2017 16:09:47 COVID-19, mRNA, LNP-S, PF, 100 mcg/0.5mL dose or 50 mcg/0.25mL dose 021 completed Camille garcia [facility] 10/24/2020 14:13:14 COVID-19, mRNA, LNP-S, PF, 100 mcg/0.5mL dose or 50 mcg/0.25mL dose 021 completed Camille garcia [facility] 10/24/2020 14:13:31 COVID-19, mRNA, LNP-S, PF, 100 mcg/0.5mL dose or 50 mcg/0.25mL dose 021 completed [facility] 02/26/2021 14:55:08 zoster recombinant 021 completed JOCELYN Connolly [facility] 02/26/2021 14:55:08 zoster recombinant 021 completed JOCELYN Connolly [facility] 02/26/2021 14:55:08 Tdap 022 completed JOCELYN Bajwa [facility] 01/22/2022 14:10:10 COVID-19, mRNA, LNP-S, bivalent, PF, 50 mcg/0.5 mL or 25mcg/0.25 mL dose 022 completed JOCELYN Bajwa [facility] 06/05/2022 11:23:35 Influenza, split virus, quadrivalent, PF 016 completed Not Available [facility] 03/04/2019 02:22:07 Td (adult), 2 Lf tetanus toxoid, preservative free, adsorbed 998 completed Not Available [facility] 08/29/2013 14:06:54 Tdap 011 completed Not Available [facility] 08/29/2013 14:06:54 Pneumococcal conjugate PCV21, polysaccharide ASA559 conjugate, PF 024 cancelled patient objection ROSARIO BRITT MD [address] [address], [place], [address], [facility] 12/17/2023 11:02:05 Past Encounters Encounter ID Performer Location Encounter Start Date Encounter Closed Date Diagnosis/Indication Diagnosis SNOMED-CT Code Diagnosis ICD10 Code Diagnosis Note [id number] autoEComm erce [address] [facility] [place] [address] 04/21/2007 00:00:00 [id number] autoEComm erce [address] [facility],[address] [place] [address] 09/11/2008 00:00:00 [id number] autoEComm erce [address] [facility] [address] [place] [address] 10/10/2008 00:00:00 [id number] autoEComm erce [address] [facility] [place] [address] 02/13/2009 00:00:00 [id number] [address]Comm [address] [place] [address] 08/14/2009 00:00:00 [id number] autoEComm erce [address] [facility] [address] [place] [address] 12/12/2009 00:00:00 [id number] autoEComm erce [address] [facility] [place] [address] 04/16/2010 00:00:00 [id number] autoEComm erce [address] [facility] [place] [address] 10/23/2010 00:00:00 [id number] autoEComm erce [address] [facility] [place] [address] 12/18/2010 00:00:00 [id number] autoEComm erce [address] [facility] [place] [address] 04/23/2011 00:00:00 [id number] autoEComm erce [address] [facility] [place] [address] 05/08/2011 00:00:00 [id number] autoEComm erce [address] [facility] [place] [address] 08/12/2011 00:00:00 [id number] autoEComm erce [address] [facility] [address] [place] [address] 12/23/2011 00:00:00 [id number] autoEComm erce [address] [facility] [place] [address] 04/21/2012 00:00:00 [id number] autoEComm erce [address] [facility] [place], [place] [address] 08/05/2012 00:00:00 [id number] autoEComm erce [address] [facility] [place], [place] [address] 12/23/2012 00:00:00 [id number] Leila bennett MD Main Office [facility] [address] [place] [address] 12/29/2013 09:20:32 12/29/2013 10:03:24 Adult health examination [id number] all screening is utd,, mammo pap and colonoscpy is utd. good eating habits. Essential hypertension 32160504 well controlled continue meds, check labs [id number] Leila bennett MD Main Office [address] [place] [address] [place] [address] 07/05/2014 08:56:11 07/05/2014 09:27:27 Essential hypertension 27617815 well controlled continue meds, return 6 months, good diet change and weight loss Weight decreased 974701031 good diet changes, continue and continue exercise [id number] Leila bennett MD Main Office [facility] [address] [address] [place], [place] [address] 01/02/2015 09:13:11 01/02/2015 10:16:05 Adult health examination 932542100 Z00.00 all screening is utd,, mammo pap and colonoscpy is utd. good eating habits. will talk to her ob gyn about a bone density Essential hypertension 72798243 I10 well controlled continue meds, return 6 months, good diet change and weight loss Pure hypercholesterolemia 727425619 E78.0 Sciatica 94873987 M54.32 sciatica, months, pt will try gabapentin and if not helpful or keeps happening pt to set up PT [id number] Leila bennett MD Main Office [address] [place] [address] [place] [address] 07/24/2015 15:16:11 07/24/2015 15:44:50 Essential hypertension 74790356 I10 BP up, verybusy weeks, will check BP at her moms, document and bring in in 6 weeks, if still elevated will increase dose. Sciatica 66827308 M54.32 resolved [id number] Leila bennett MD Main Office [address] [facility] [address] [place] [address] 09/04/2015 11:32:47 09/04/2015 12:08:24 Essential hypertension 20985168 I10 BP is up a bit, will add hctz [id number] Leila bennett MD Main Office [address] [address] [place] [address] 02/03/2016 15:02:24 02/03/2016 15:35:11 Needs influenza immunization 511085378 Z23 Drug-induc ed hypokalemia 648673922 E87.6 low K due to hctz, will repeat K today and continue K and meds Essential hypertension 28977590 I10 well controlled continue meds, return for PE 05/01 Pain in le ft lower limb 942482005 M79.605 left lateral leg pain, responds to neurontin at night, use as needed but pt knows to watch for drowsiness [id number] Leila bennett MD Main Office [address] [address] [place] [address] 08/05/2016 15:32:21 08/05/2016 16:29:11 Adult health examination 190740772 Z00.00 all screening is utd,, mammo pap and colonoscop y is utd, screen for hepaitis C due to guidlines Essential hypertension 71807756 I10 well controlled continue meds,check labs and 6 month followup [id number] Leila bennett MD Main Office [address] [facility] [address] [place] [address] 02/03/2017 16:01:47 02/03/2017 16:38:03 Essential hypertension 01732247 I10 well controlled continue meds,check labs and 6 month followup [id number] Leila bennett MD Main Office [address] [facility] [address] [place] [address] 12/29/2017 10:55:51 12/29/2017 11:50:34 Adult health examination 372813397 Z00.00 pt to set up mammogram, is active Screening for malignant neoplasm of breast 738070695 Z12.39 pt to arrange Essential hypertension 57944023 I10 well controlled continue meds Internal hordeolum 72383 1009 H00.024 most likely a hordeolum casuing the swelling, no evidence of periorbita l cellulitis , will tx with compresses , abx ointment, if not improving to see DR Mayberry [id number] Leila bennett MD Main Office [address] [facility] [address] [place] [address] 06/29/2018 10:33:54 06/29/2018 11:08:30 Essential hypertension 12330112 I10 well controlled continue meds chck labs to follow K Tendinitis 92440043 M77. 9 see hx, work related, improving with ergonomic change, ice [id number] Leila bennett MD Main Office [address] [address] [place] [address] 01/02/2019 16:12:37 01/02/2019 17:01:17 Adult health examination 090068962 Z00.00 pt to set up mammogram, is active, screening is utd Pain in le ft lower limb 841486490 M79.605 left lateral leg pain, responds to neurontin at night, use as needed but pt knows to watch for drowsiness Essential hypertension 83752050 I10 well controlled continue meds check labs to follow K [id number] Leila bennett MD Main Office [address] [address] [place] [address] 09/13/2019 09:54:46 09/13/2019 10:35:10 Essential hypertension 32770660 I10 well controlled continue meds check labs to follow K [id number] Leila bennett MD Main Office [address] [address] [place] [address] 02/14/2020 09:14:30 02/14/2020 11:06:55 Adult health examination 110250461 Z00.00 mammogram is utd, due for colonoscop y next year and never had bone density. Essential hypertension 60347578 I10 well controlled continue meds check labs Menopause present 284624 006 Z78.0 check bone density Screening for malignant neoplasm of colon 090044044 Z12.11 needs new GI provider, will refer to Dr Corona [id number] Leila bennett MD Main Office [address] [address] [place] [address] 04/17/2020 09:49:05 04/17/2020 10:17:41 Essential hypertension 65415396 I10 well controlled continue meds labs utd and nl Menopause present 414860 006 Z78.0 check bone density pt will arrange [id number] Leila bennett MD Main Office [address] [address] [place] [address] 10/17/2020 13:12:43 10/17/2020 13:50:02 Cellulitis of face L03.211 start keflex tid, call if not improving or if worsening, spreading. Call if becomes febrile or has facial pain or vesicles. [id number] Leila bennett MD Main Office [address] [address] [place] [address] 10/24/2020 14:07:27 10/24/2020 14:35:37 Essential hypertension 33791691 I10 well controlled continue meds check labs before next PE Cellulitis of face 2001 L03.211 resolving, on last day of abx, no further spread to pre auricular area. Osteoporosis 01260364 M8 1.0 sees endo and had labs, not on meds [id number] Leila bennett MD Main Office [address] [address] [place] [address] 02/26/2021 14:34:06 02/26/2021 15:27:26 Adult health examination 176550793 Z00.00 mammogram is due, colonoscop y is utd Essential hypertension 95058784 I10 well controlled continue meds check labs Screening for malignant neoplasm of breast 727741795 Z12.39 pt to arrange Administra tion of viral vaccine 51311258 Z23 [id number] Leila bennett MD Main Office [address] [address] [place] [address] 10/17/2021 15:57:57 10/17/2021 16:41:21 Essential hypertension 19543271 I10 BP up today, repeat 136/80, will have pt start [facility] to assess if we need to add a BP med Paresthesia 83657429 R20 .2 left 5th finger, ? cue to cervical issue will check labs and refer to hand ortho Stiffness of joint of left hand 4880908888 82914 M25.642 new problem, will refer to hand orthopedic s [id number] Leila bennett MD Main Office [address] [facility] 207 [facility] [place], [place] [address] 01/22/2022 14:08:50 01/22/2022 14:43:54 Essential hypertension 55650317 I10 stable, due for labs, continue lisinopril and hctz [id number] ROSARIO BRITT MD Main Office [address] [facility] 207 [facility] [place], [place] [address] 06/05/2022 11:03:36 06/05/2022 11:41:01 Essential hypertension 62386628 I10 - BP today 143/77 and on repeat 114/82- pt is currently on lisinopril 40mg QD and HCTZ 12.5mg QD- will not make any changes to regimen Pt counselled on:-Dietar y Approaches to Stop Hypertensi on (DASH) is an eating plan rich in fruits, vegetables , whole grains, fish, poultry, nuts, legumes, and low-fat dairy. These foods are high in hirsch nutrients such as potassium, magnesium, calcium, fiber, and protein.-A dvised continued adherence to medication s and low salt diet - extensive counsellin g done regarding dietary habits.-En couraged regular aerobic exercise 30 min for 4-5 x week.-BP monitoring at home advised to bring log at every visit-Side -effects of high BP can cause Stroke, Heart attack and even d/w pt-D/w pt when to call 911 or reach out to Health care provider:> Think you are having a reaction to a medicine you are taking.>Bonilla ve headaches that keep coming back (recurring ).>Feel dizzy.>Hav e swelling in your ankles.>Bonilla ve trouble with your vision. Adult [facility] th examination 552982868 Z00.00 Health Maintenanc e FemaleA) Patient was counseled on healthy diet, exercise and nutrition. BMI is 23.9. B) ScreeningL ast Mammogram: start at age 50 stop at 74Date:04/20Resul t: BIRADS-1Ne xt: one year Last Pap smear: start at age 21 to age 65Date: 02/19/2020e sults: HPV negative, no atypical cellsNext: 5 years, 02/2025 Last Colonoscop y: start at age 45-75Date: 05/31/2020 esult: negative -cologuard Next: 3 years, 05/2023 Last DEXA scan:Date: 05/28/2020 esult: osteoporos is C) Vaccines:I nfluenza: not this yearTdAP: 02/26/2021 Zoster: 03/29/2020 , 09/06/2020 PCV20:COVI , 06/06/2020, 01/31/2021 , 01/31/2022 D) Routine blood work orderedE) Updated patient's history RTC in one year for annual exam or sooner if any acute complaints Osteoporosis 01252644 M8 1.0 - last seen by endo on 11/05/2021 - pt was started on alendronat e 70mg weekly in 04/09- pt also on calcium supplement ation- counselled on continuing exercise- following with endo for this problem Fatigue 49926241 R53.83 Z00.00 Hyperlipidemia 89194501 E78.5 Z00.00 [id number] Kassandra Ruiz MD Tele[facility] [address] [place] [address] 06/15/2022 10:08:31 06/15/2022 11:07:07 Hordeolum externum of upper eyelid of right eye 9414148625 44742 H00.011 [id number] Kaleb Mora MD Main Office [address] [place] [address] 09/29/2023 10:48:33 09/29/2023 11:16:18 Left side sciatica 1800333130 57189 M54.32 x1 week; hx of sciatica-h as been completing exercises and stretches at home from PT she did in 2022-sharp /shooting sensation radiating from left hip down left leg-denies of any red flag symptoms-d eclines any medication at this time; did try gabapentin years ago with no relief-pt declines PT referral or specialist referral-p t requests xray of left hip-discus sed to continue with conservati ve measuremen ts [id number] ROSARIO BRITT MD Main Office [address] [facility] [address] [facility] [place], [place] [address] 12/17/2023 10:17:31 12/17/2023 11:01:07 Advance directive discussed with patient 073784739 Z71.89 - discussed MOLTS and HCP Adult heal th examination 196084585 Z00.00 Health Maintenanc e FemaleA) Patient was counseled on healthy diet, exercise and nutrition. BMI is 24.2 B) ScreeningL ast Mammogram: start at age 50 stop at 75Date: 04/22/2023e sult: BIRADS-1Ne xt: 04/2024 Last Pap smear: start at age 21 to age 65Date: 02/19/2020e sults: HPV negative, no atypical cellsNext: aged out Last Colonoscop y: start at age 45-75Date: 05/31/2020 esult: negative -cologuard Next: 3 years, 05/2023-pt would like to back to colonoscop y Last DEXA scan:Date: 05/28/2020 esult: osteoporos isNext: will have in January C) Vaccines:I nfluenza: refusedTdA P: 02/26/2021 Zoster: 03/29/2020 , 09/06/2020 PCV20: refusedCOV ID: 05/09/2020 , 06/06/2020, 01/31/2021 , 01/31/2022 D) Routine blood work orderedE) Updated patient's history RTC in one year for annual exam or sooner if any acute complaints Essential hypertension 90610255 I10 - at goal- BP today 119/76- pt is currently on lisinopril 40mg QD and HCTZ 12.5mg QD- will not make any changes to regimen Pt counselled on:-Dietar y Approaches to Stop Hypertensi on (DASH) is an eating plan rich in fruits, vegetables , whole grains, fish, poultry, nuts, legumes, and low-fat dairy. These foods are high in hirsch nutrients such as potassium, magnesium, calcium, fiber, and protein.-A dvised continued adherence to medication s and low salt diet - extensive counsellin g done regarding dietary habits.-En couraged regular aerobic exercise 30 min for 4-5 x week.-BP monitoring at home advised to bring log at every visit-Side -effects of high BP can cause Stroke, Heart attack and even d/w pt-D/w pt when to call 911 or reach out to Health care provider:> Think you are having a reaction to a medicine you are taking.>Bonilla ve headaches that keep coming back (recurring ).>Feel dizzy.>Hav e swelling in your ankles.>Bonilla ve trouble with your vision. Osteoporosis 30623593 M8 1.0 - last seen by endo on 05/21/2023- pt was started on alendronat e 70mg weekly in 04/09- pt also on calcium supplement ation- counselled on continuing exercise- following with endo for this problem -> follows Dr. Cohen Screening for malignant neoplasm of breast 425422174 Z12.39 Screening for malignant neoplasm of colon 966879506 Z12.11 Fatigue 14857033 R53.83 Z00.00 Hyperlipidemia 00961682 E78.5 Z00.00 FASTING Influenza vaccination declined 508489002 Z28.21 Vaccine de clined by patient 9854215552 02 Z28.21 Lumbar radiculopathy 128 661951 M54.16 - neuropathi c pain on the left side, started over the summer and improved in November- pt continues to do stretches- will check on vitamin b12 and folate levels- last x-ray of lumbar spine done on 01/2019 was normal- will continue to monitor, if worsening pt will make a follow-up [id number] Kassandra Ruiz MD Main Office [address] [facility] 207 [facility] [place] [address] 07/29/2024 09:50:10 07/29/2024 10:26:21 Essential hypertension 64186538 I10 Acute back pain with sciatica 668157891 M54.42 Health Concerns Section Related Observation LastModified by Organization Detai ls LastModified Time None Recorded Concern Status LastModified by Organization Details LastModified Time None Recorded Advance Directives Directive N: Payers Insurance Date Sequence Insurance Name Policy Number Policy Littlejohn Covered Member ID Littlejohn Member ID Guarantor Name 08/08/2024 1 [facility] (MEDICARE REPLACEMENT/ ADVANTAGE - PPO) [id number] [place] [facility] [id number] [facility] 09/29/[address] [facility] [place] (HMO) [id number] [place] [facility] [id number] [place] [facility] 09/29/2023 1 [id number] [place] [facility] [id number] [facility] 09/29/2023 1 [place] [id number] [place] [facility] [id number] [place] [facility] Notes Date Note Type Note Provider Name and Address Organization Details Recorded Time 3 text/html Medicare Annual Wellness VisitReported by PatientSocial/Behavioral HistoryFor diet and nutrition, patient reportshealthy dietanddiscussed vitamin and supplement use(does take a bone strengthening medication). For fracture risk, patient reportsno history of fracturesandno recent explained fracture. For physical activity, patient reportsdiscussed weightbearing activitiesanddiscussed exercise habits(silver sneakers, water aerobics).Mental Status:For depression risk, patient reportsnever feels sad, empty, or tearful,no loss of interest in activities,no sleep disturbances or insomnia,no agitation,no feelings of worthlessness or guilt,no thoughts of suicide, andno history of depression. For orientation, patient reportsno disorientation to time,no disorientation to date, andno disorientation to place. For concentration and memory, patient reportsno decreased concentrating ability,no memory lapses or loss, anddoes not forget words(pt writes things down to help her remember). For speech/motor difficulties, patient reportsno speech difficulties,no difficulty with fine manipulative tasks, anddoes not knock things over when trying to pick them up.Functional AbilityFor hearing, patient reportsno loss of hearing. For vision, patient reportsno vision problems. For activities of daily living, patient reportsable to bathe with limited or no assistance,able to contol urination and bowels,able to dress with limited or no assistance,able to feed self with limited or no assistance,able to get out of chair or bed with limited or no assistance,able to groom with limited or no assistance, andable to toilet with limited or no assistance. For instrumental activities of daily living, patient reportsable to do house work with limited or no assistance,able to grocery shop with limited or no assistance,able to manage medications with limited or no assistance,able to manage money with limited or no assistance,able to prepare meals with limited or no assistance, andable to use the phone with limited or no assistance. For falls risk assessment, patient reportsno frequent falls while walkingandno fall in the past year. For home safety, patient reportsno unsafe keagan hazzardsandworking smoke/co detectors. Angeles Pringle if a 66 year old F who presented to the clinic for her first Medicare visit. Visit Type: Initial How would you rate your health? Good Have you been discharged from the hospital recently? NoHave you been to the emergency room or urgent care recently? NoDo you have any significant previous hospital stays, injuries, or treatment? No Home Safety:Is the tub or shower floor slippery and do you need support? No but has a rubber mat and suction handleDo you need some support when you get in and out of the tub or from the toilet? NoDo you have any small rugs or runners that slide or bunch up when you push them with your foot? NoAre there papers, books, towels, shoes, magazines, boxes, blankets, or other objects on the floor? No The patient does not have a history of falls. Oral Health: twice a yearEye Health: due for eye exam has not been a few yearsMotor Vehicle: Yes-Do you wear a seatbelt when in a car? Yes Screening Tools:Were there any ADL or IADL deficiencies not linked to physical limitations? NoDuring the past 12 months, have you experienced confusion or memory loss that is happening more often or is getting worse? No ROSARIO BRITT MD [address] [address], [place], [phone], [facility] 06/05/2022 12:16:46 3 text/html 66 year old female c/o swollen red and tender R. upper eyelid. H/o sty inn December responded well to e-mycin topical ointment. Denies drainage , fever, chills. Denies vision change. Cici Barrera PA-C [address], [place], [address], [facility] 06/15/2022 10:54:31 4 text/html ROS as noted in the HPI Angeles is a 67yr old F who presents for left sided hip pain x1 week. Has a hx of sciatica- left side. Reports of having a flare up of sciatica x1 week. Has been completing the exercises and stretches she had from PT. Triggers include pain with bending over, stairs, and ambulating. Has a sharp shooting sensation from the left hip down the leg. Denies of any low back pain. Does not take any OTC pain medication. Denies of any red flag symptoms PATRICIO MONTGOMERY [address], [place], [address], [facility] 09/29/2023 12:35:49 4 text/html Medicare Annual Wellness VisitReported by PatientSocial/Behavioral HistoryFor diet and nutrition, patient reportshealthy dietanddiscussed vitamin and supplement use(vitamin d and calcium). For fracture risk, patient reportsno history of fracturesandno recent explained fracture. For physical activity, patient reportsdiscussed weightbearing activitiesanddiscussed exercise habits(silver sneakers).Mental Status:For depression risk, patient reportsnever feels sad, empty, or tearful,no loss of interest in activities,no sleep disturbances or insomnia,no agitation,no feelings of worthlessness or guilt,no thoughts of suicide, andno history of depression. For orientation, patient reportsno disorientation to time,no disorientation to date, andno disorientation to place. For concentration and memory, patient reportsno decreased concentrating ability,no memory lapses or loss, anddoes not forget words(pt writes things down to help her remember). For speech/motor difficulties, patient reportsno speech difficulties,no difficulty with fine manipulative tasks, anddoes not knock things over when trying to pick them up.Functional AbilityFor hearing, patient reportsno loss of hearing. For vision, patient reportsno vision problems. For activities of daily living, patient reportsable to bathe with limited or no assistance,able to contol urination and bowels,able to dress with limited or no assistance,able to feed self with limited or no assistance,able to get out of chair or bed with limited or no assistance,able to groom with limited or no assistance, andable to toilet with limited or no assistance. For instrumental activities of daily living, patient reportsable to do house work with limited or no assistance,able to grocery shop with limited or no assistance,able to manage medications with limited or no assistance,able to manage money with limited or no assistance,able to prepare meals with limited or no assistance, andable to use the phone with limited or no assistance. For falls risk assessment, patient reportsno frequent falls while walkingandno fall in the past year. For home safety, patient reportsno unsafe keagan hazzards,working smoke/co detectors, andhas hand bars in the bathroom/shower. Angeles Pringle if a 68 year old F who presented to the clinic for her first Medicare visit. Visit Type: Annual How would you rate your health? Good Have you been discharged from the hospital recently? NoHave you been to the emergency room or urgent care recently? NoDo you have any significant previous hospital stays, injuries, or treatment? No Home Safety:Is the tub or shower floor slippery and do you need support? No but has a rubber mat and suction handleDo you need some support when you get in and out of the tub or from the toilet? NoDo you have any small rugs or runners that slide or bunch up when you push them with your foot? NoAre there papers, books, towels, shoes, magazines, boxes, blankets, or other objects on the floor? No The patient does not have a history of falls. Oral Health: twice a yearEye Health: every two yearsMotor Vehicle: Yes-Do you wear a seatbelt when in a car? Yes Screening Tools:Were there any ADL or IADL deficiencies not linked to physical limitations? NoDuring the past 12 months, have you experienced confusion or memory loss that is happening more often or is getting worse? No Advanced care directive: none on file ROSARIO BRITT MD [address], [place], [address], [facility] 12/17/2023 11:04:41 5 text/html Musculoskeletal PainReported by PatientHPIFor location, patient reportspain radiating to the buttocks,pain radiating to the legs left,pain radiating to the foot left, andpain radiating to the ankle left. For quality, patient reportstingling. For severity, patient reportsworsening. For associated symptoms, patient reportsweak limbs,tingling, andnumbness of the legs/feetbut reportsno feverandon incontinence (no). For timing, patient reportsintermittent. For context, patient reportsprior back problems. For duration, (has chronic sciatica, worsen the past week.). Back PainReported by PatientHPIFor location, patient reportspain radiating to the buttocks,pain radiating to the legs,pain radiating to the foot, andpain radiating to the ankle. For quality, patient reportstingling. For severity, patient reportsworsening. For associated symptoms, patient reportsweak limbs,numbness of the legs/feet, andtinglingbut reportsno fever,no incontinence (no), andno shortness of breath. For duration, patient reportsacuteandchronic. For onset/timing, patient reportsrecurrent episode. For context, patient reportsprior back problems. Kassandra Ruiz MD [address], [place], [address], [facility] 07/29/2024 10:35:47 OBGyn Episode No OBEpisode recorded.
--- OUTSIDE RECORDS SUMMARY | 2024-09-08 11:05 | XMS_ITS | Clinical Summary ---
Author Organization [address] Address [address] [place] [phone] Phone Care Team Providers Care Sports Equipment Repairer Name Role Phone Arline Pringle MD Primary Care Provider [phone] Surgical History Surgery Date Site/Laterality Comments SECTION PROCEDURE: HISTORICAL DELIVERY; COMMENT: x1 COLONOSCOPY 03/2010 PROCEDURE: HISTORICAL COLONOSCOPY; COMMENT: nml, repeat in 10 years Family History Medical History Relation Name Comments Prostate cancer Father Breast cancer Neg Hx Colon cancer Neg Hx Ovarian cancer Neg Hx Uterine cancer Neg Hx Relation Name Status Comments Father Social History Tobacco Use Types Packs/Day Years Used Date Smoking Tobacco: Never Smokeless Tobacco: Never Alcohol Use Standard Drinks/Week Comments No 0 (1 standard drink = 0.6 oz pur e alcohol) Comments Unknown Sex and Gender Information Value Date Recorded Sex Assigned at Not on file Legal Sex Female 2:29 PM EST Gender Identity Not on file Sexual Orientation Not on file Obstetrics History Plan of Treatment Upcoming Encounters Date Type Department Care Team (Late st Contact Info) Description 01/15/2025 11:00 AM EST Appointment Radiology Department - [address] [phone] Health Maintenance Due Date Last Done Comments Pneumococcal Vaccine: 50+ Years (1 of 1 - PCV) 2006 Cholesterol Screening (Lipid Panel) 01/14/2022 Falls Risk Assessment 01/14/2022 Hepatitis C Screening 01/14/2022 Medicare Annual Wellness Visit 01/14/2022 Social Influencers of Health Screening 01/14/2022 COVID-19 Vaccine ( season) 2023 01/31/2022, 01/31/2021, 06/06/2020, Additional history exists Depression Screening 02/16/2024 Hypertension/CHF/CAD Annual BMP Blood Test 05/18/2024 05/19/2023 Influenza Vaccine (#1) 2024 11/15/2016, 2015 Breast Cancer Screening 04/21/2025 04/22/19 24, 04/22/2023, 04/20/2022, Additional history exists DTaP,Tdap,and Td Vaccines (4 - Td or Tdap) 02/26/2031 02/26/2021, 12/18/2010, 04/30/1997 RSV Immunization Adult Patients (1 - 1-dose 75+ series) 11/12/2031 Osteoporosis Screening (Bone Density Screening) 01/25/2034 01/26/2024, 05/28/2020 Colorectal Cancer Screening: Colonoscopy 03/14/2034 03/14/2024 Zoster Vaccines Completed 09/06/2020, 03/29/2020 HIB Vaccines Aged Out No longer eligi ble based on patient's age to complete this topic HPV Vaccines Aged Out No longer eligi ble based on patient's age to complete this topic Hepatitis A Vaccines Aged Out No long er eligible based on patient's age to complete this topic Hepatitis B Vaccines Aged Out No long er eligible based on patient's age to complete this topic IPV Vaccines Aged Out No longer eligi ble based on patient's age to complete this topic MMR Vaccines Aged Out No longer eligi ble based on patient's age to complete this topic Meningococcal ACWY Vaccine Aged Out N o longer eligible based on patient's age to complete this topic Meningococcal B Vaccine Aged Out No l onger eligible based on patient's age to complete this topic RSV Immunization Patients Under 20 months Aged Out No longer eligible based on patient's age to complete this topic Varicella Vaccines Aged Out No longer eligible based on patient's age to complete this topic Procedures Procedure Name Priority Date/Time Associated Diagnosis Comments EXTERNAL COLONOSCOPY REPORT Routine 03/14/2024 5:41 PM EST BD BONE DENSITY DXA AXIAL SKELETON Routine 01/26/2024 11:32 AM EST Age-related osteoporosis without current pathological fracture SCREENING MAMMOGRAPHY BI 2-VIEW BREAST INC CAD Routine 04/22/2023 4:40 PM EST Encounter for screening mammogram for malignant neoplasm of breast from Last 3 Months or Most Recently Relevant to Health Maintenance Results * External Colonoscopy Report (03/14/2024 5:41 PM EST) Anatomical Region Laterality Modality Endoscopy us Historical Provider MD GREENE~PROCEDURE ORDERABLES F inal Result * BD Bone Density DXA Axial Skeleton (01/26/2024 11:32 AM EST) Anatomical Region Laterality Modality Wrist, Hip, L-spine Bone Densito metry 01/26/2024 6:09 PM EST Impressions 01/26/2024 6:11 PM EST Osteoporosis Reference Information: The T-score is the number of standard deviations above or below the standard which is normal for young adults at their peak bone mineral density. The World Health Organization (WHO) interprets the T-scores as follows: At or above -1 SD Normal bone density Between -1 and -2.5 SD Osteopenia At or below -2.5 SD Osteoporosis -------- FINAL REPORT -------- Dictated By: Yao Zuñiga Dictated Date: 01/26/2024 18:09 ET Assigned Physician: Yao Zuñiga Reviewed and Electronically Signed By: Yao Zuñiga Signed Date: 01/26/2024 18:11 ET Workstation ID: [id number] Transcribed By: Self Edit Transcribed Date: 01/26/2024 18:09 ET Narrative 01/26/2024 6:11 PM EST STUDY: DUAL ENERGY X-RAY ABSORPTIOMETRY / DXA REASON FOR EXAM: Female, 68 years old m81.0 TECHNIQUE: Bone Mineral Density (BMD) measurements of the lumbar spine and left hip were obtained using [employer] W (S/N [id number]). COMPARISON: May 28, 2020 FINDINGS: L1-L4 BMD: 0.750 g/cm2 L1-L4 T score: -2.7. This corresponds to osteoporosis. This represents a 3.3* % increase in bone density compared with prior exam from May 28, 2020. Left femoral neck BMD: 0.542 g/cm2 Left femoral neck T score: -2.8. This corresponds to osteoporosis. Left total hip BMD: 0.670 g/cm2 Left total hip T score: -2.2. This corresponds to osteopenia. This represents a 5.7* % increase in bone density compared with prior exam from May 28, 2020. * - Indicates a statistically significant change. Procedure Note Yao Zuñiga MD - 01/26/2024 STUDY: DUAL ENERGY X-RAY ABSORPTIOMETRY / DXA REASON FOR EXAM: Female, 68 years old m81.0 TECHNIQUE: Bone Mineral Density (BMD) measurements of the lumbar spineand left hip were obtained using [employer] W (S/N [id number]). COMPARISON: May 28, 2020 FINDINGS: L1-L4 BMD: 0.750 g/cm2 L1-L4 T score: -2.7. This corresponds to osteoporosis. This represents a 3.3* % increase in bone density compared with prior examfrom May 28, 2020. Left femoral neck BMD: 0.542 g/cm2 Left femoral neck T score: -2.8. This corresponds to osteoporosis. Left total hip BMD: 0.670 g/cm2 Left total hip T score: -2.2. This corresponds to osteopenia. This represents a 5.7* % increase in bone density compared with prior examfrom May 28, 2020. * - Indicates a statistically significant change. IMPRESSION: Osteoporosis Reference Information: The T-score is the number of standard deviations above or below thestandard which is normal for young adults at their peak bone mineraldensity. The World Health Organization (WHO) interprets the T-scores asfollows: At or above -1 SD Normal bone density Between -1 and -2.5 SD Osteopenia At or below -2.5 SD Osteoporosis -------- FINAL REPORT -------- Dictated By: Yao Zuñiga Dictated Date: 01/26/2024 18:09 ET Assigned Physician: Yao Zuñiga Reviewed and Electronically Signed By: Yao Zuñiga Signed Date: 01/26/2024 18:11 ET Workstation ID: [id number] Transcribed By: Self Edit Transcribed Date: 01/26/2024 18:09 ET us Amira Meyer MD IMG DXA PROCEDURES Final Resul t * SCREENING MAMMOGRAPHY BI 2-VIEW BREAST INC CAD (04/22/2023 4:40 PM EST) Anatomical Region Laterality Modality Radiographic Darlene ging 04/20/2022 4:48 PM EST Narrative 04/23/2023 8:31 AM EST This is a summary report. The complete report is available in the patient's medical record. If you cannot access the medical record, please contact the sending organization for a detailed fax or copy. Exam: Screening mammogram Findings: Digital bilateral full-field screening mammography is performed with tomosynthesis and interpreted with the aid of computer-aided detection. Comparison is made with 04/20/2022 and as far back as 09/20/2018. Breast parenchyma is heterogeneously dense, which may obscure small masses. No new suspicious mass, architectural distortion, or suspicious calcifications. Impression: No mammographic evidence of malignancy. BI-RADS 1 - negative Procedure Note Keri Browning MD - 10/04/2023 This is a summary report. The complete report is available in thepatient's medical record. If you cannot access the medical record, pleasecontact the sending organization for a detailed fax or copy. Exam: Screening mammogram Findings: Digital bilateral full-field screening mammography is performedwith tomosynthesis and interpreted with the aid of computer-aideddetection. Comparison is made with 04/20/2022 and as far back as09/20/2018. Breast parenchyma is heterogeneously dense, which may obscure smallmasses. No new suspicious mass, architectural distortion, or suspiciouscalcifications. Impression: No mammographic evidence of malignancy. BI-RADS 1 - negative Arline Pringle MD IMG XR PROCEDURES Final Res ult from Last 3 Months or Most Recently Relevant to Health Maintenance Insurance [employer] MEDICARE Care Teams Sports Equipment Repairer Relationship Specialty Start Date End Date Arline Pringle MD [address] [phone] PCP - General Internal Medicine 01/10/24
--- OUTSIDE RECORDS SUMMARY | 2024-09-08 11:05 | XMS_ITS | Clinical Summary ---
Author Organization [facility] Address [address] [place] [address] Phone Care Team Providers Care User Experience Architect Name Role Phone Arline Pringle MD Primary Care Provider Allergies No known active allergies Medications lisinopril (PRINIVIL,ZESTRIL ) 40 MG tablet Take 40 mg by mouth daily. 4 Active hydroCHLOROthiazi de (MICROZIDE) 12.5 mg capsule Take 1 capsule by mouth as needed. 4 Active rosuvastatin (CRESTOR) 10 MG tablet Take 10 mg by mouth daily. Active alendronate (FOSAMAX) 70 MG tabletIndications :Age-related osteoporosis without current pathological fracture Take 1 tablet (70 mg total) by mouth every 7 days. Take in the morning with a full glass of water, on an empty stomach, and do not take anything else by mouth or lie down for the next 30 min. 12 tablet 3 5 Active Active Problems Problem Noted Date Diagnosed Date Age-related osteoporosis wit hout current pathological fracture 05/20/2023 Assessment & Plan (07/08/2024 8:46 PM EDT): Postmenopausal osteoporosis diagnosed on screening DEXA in 05/2020 with lumbar T- score of -2.9/Z-score -2.0 and femoral neck T-score of -2.8. No fragility fracture. No significant height loss. Risk factors for bone loss include menopause, decreased calcium intake and family history of osteoporosis. Patient had a borderline elevated urine calcium/creatinine ratio in 2021 but the 24-hour urine calcium was normal at 200 mg. PTH and serum calcium were also normal. One of her her sister has kidney stones. Patient has been taking 70 mg alendronate weekly since the fall 2021 without side effects. Follow-up DEXA in 01/2024 showed a significant 3.3% improvement at the lumbar spine, T-score -2.7 and significant 5.7% improvement at the left total hip, T-score -2.2, femoral neck was stable. Recent serum CTX bone resorption marker was low normal at 175, appropriate for alendronate use. Her dietary calcium intake remains suboptimal but getting about 450 mg calcium and 500 IU vitamin D3 from supplement. Recent vitamin D is not available. - Continue the alendronate for now since usual course of treatment is between 3 to 5 years. -Increase calcium intake by taking her current calcium plus D supplement twice a day -Continue to work on regular weightbearing exercises and fall prevention -Recheck 25-OHD and CMP about 6 to 8 weeks after calcium intake increased. -Repeat DEXA in 01/2026 at [place] Assessment & Plan (05/21/2023 11:06 AM EDT): Postmenopausal osteoporosis diagnosed on screening DEXA in 05/2020 with lumbar T- score of -2.9 and femoral neck T-score of -2.8. No fragility fracture. No significant height loss. Risk factors for bone loss include menopause, decreased calcium intake and family history of osteoporosis. Patient had a borderline elevated urine calcium/creatinine ratio in 2021 but the 24-hour urine calcium was normal at 200 mg. PTH and serum calcium were also normal. One of her her sister has kidney stones. Patient has been taking 70 mg alendronate weekly since the fall 2021 without side effects. Follow-up DEXA has not been done. Her calcium intake is suboptimal from her diet and she is not taking the calcium plus D supplement consistently. Recent vitamin D is not available. Plan to continue the alendronate for now since usual course of treatment is between 3 to 5 years. Increase calcium intake with a goal of 1200 mg daily. Discussed importance of adequate calcium, vitamin D intake, regular weightbearing exercises and fall prevention. Repeat DEXA at previous location-[facility], patient will schedule. Check labs. Vitamin D deficiency, unspecified 05/20/2023 Assessment & Plan (07/08/2024 8:47 PM EDT): 25 OHD was ordered but unfortunately it was not reported with labs from 06/28/2024. -Currently on 500 IU D3 from her calcium supplement. Dose will be doubled and level will be checked in about 6 to 8 weeks Assessment & Plan (05/21/2023 11:07 AM EDT): Intermittently taking calcium plus D with unknown amount of vitamin D. Will check level and advise on dose. Goiter 05/20/2023 Assessment & Plan (07/08/2024 8:55 PM EDT): Right thyroid lobe enlargement was noted in 05/2023. Strong family history of thyroid diseases including hypothyroidism and benign nodules in mother, thyroid cancer in 1 sisterSuzan and oldest sister, Leora had hemithyroidectomy for benign lesion in 2022. Patient had an ultrasound in 05/2023 showing a slightly asymmetric thyroid, right lobe 6 cc, left lobe 5.5 cc with signs of Katie's thyroiditis but no distinct nodule. TSH was normal at 0.7 in 05/2023. - Monitor TSH yearly. -Reviewed symptoms of hypo and hyperthyroidism, patient to call if concerned -Yearly thyroid exam. Repeat ultrasound if clinical concern Assessment & Plan (05/21/2023 11:08 AM EDT): Right lobe of thyroid enlarged on today's exam. Strong family history of thyroid diseases including hypothyroidism and benign nodules in mother, thyroid cancer in 1 sister, Suzan and oldest sister, Leora had hemithyroidectomy for benign lesion in 2022. Plan to schedule ultrasound Family history of thyroid cancer 05/20/2023 Assessment & Plan (07/08/2024 8:48 PM EDT): SisterSuzan had thyroid cancer of unknown type in 1986, status post surgery and radioactive iodine ablation. Assessment & Plan (05/21/2023 11:09 AM EDT): Suzan Hickman had thyroid cancer of unknown type in 1986. She is doing well after surgery and radioactive iodine ablation. Family history of kidney stone 05/20/2023 Assessment & Plan (07/08/2024 8:48 PM EDT): 1 sister with history of kidney stones. Patient had no history of kidney stones. Her 24-hour urine calcium was normal at 200 mg in 2021. Assessment & Plan (05/21/2023 11:09 AM EDT): 1 sister with history of kidney stones. See above. Encounters Date Type Department Care Team Description 07/11/2024 Telephone [facility] Endocrinology [address] [place] [address] Amira Meyer MD Script not signed (Script was never signed by provider) 07/05/2024 3:20 PM EDT Office Visit [facility] Endocrinology [address] [place] [address] Amira Meyer MD Age-related osteoporosis without current pathological fracture (Primary Dx); Vitamin D deficiency, unspecified; Goiter; Family history of thyroid cancer; Family history of kidney stone 07/03/2024 Orders Only [facility] [address] [place] [address] [place] [address] Amira Meyer MD 06/28/2024 Telephone [facility] Endocrinology [address] [place] [address] Amira Meyer MD fax lab orders (fax lab orders) from Last 3 Months Social History Tobacco Use Types Packs/Day Years Used Date Smoking Tobacco: Never Smokeless Tobacco: Never Tobacco Cessation:Counseling Given: Not Answered Alcohol Use Standard Drinks/Week Comments Never 0 (1 standard drink = 0.6 oz pur e alcohol) Education Answer Date Recorded Are you interested in more education? Not on den e 12/16/2022 Are you concerned about learning? Not on file 12/16/2022 No 12/16/2022 No 12/16/2022 Digital Access Answer Date Recorded No 12/16/2022 No 12/16/2022 Reliable internet access at home? Not on file 12/16/2022 Device with a working camera? Not on file Comments Unknown Sex and Gender Information Value Date Recorded Sex Assigned at Female 05/31/2023 1:33 PM EDT Legal Sex Female 5:41 PM EDT Gender Identity Female 05/31/2023 1:33 PM EDT Sexual Orientation Not on file Last Filed Vital Signs Vital Sign Reading Time Taken Comments Blood Pressure 124/71 07/05/2024 3:17 PM EDT Pulse 54 07/05/2024 3:17 PM EDT Temperature - - Respiratory Rate - - Oxygen Saturation 98% 05/19/2023 11:07 AM EDT Inhaled Oxygen Concentration - - Weight 65.8 kg (145 lb) 07/05/2024 3:17 PM EDT Height 161 cm (5' 3.39 ) 07/05/2024 3:17 PM EDT Body Mass Index 25.37 07/05/2024 3:17 PM EDT Plan of Treatment Upcoming Encounters Date Type Department Care Team (Late st Contact Info) Description 04/18/2025 9:40 AM EST Office Visit [facility] [address] [place] [address] Amira Meyer MD [address] [place] [phone] [email or web address] Health Maintenance Due Date Last Done Comments Adult Td,Tdap Booster 1955 LIPID PANEL 1956 DEPRESSION SCREENING 1968 HEPATITIS C SCREENING 1974 COLOGUARD 2001 COLONOSCOPY 2001 COLORECTAL CANCER SCREENING 2001 FIT TEST 2001 FOBT 2001 SIGMOIDOSCOPY 2001 VIRTUAL COLONOSCOPY 2001 PNEUMOCOCCAL VACCINES (50+ years) (1 of 1 - PCV) 2006 ZOSTER VACCINES (1 of 2) 2006 MAMMOGRAM 11/21/2021 11/22/2019 COVID-19 VACCINE (1 - 2023-2 5 season) 2023 POTASSIUM LEVEL 05/18/2024 05/19/2023 CREATININE LEVEL 02/20/2025 02/21/2024, 05/19/2023 SCREENING FOR DIABETES 05/18/2026 05/19/2023 RSV VACCINE (1 - 1-dose 75+ series) 11/12/2031 OSTEOPOROSIS SCREENING INITI AL (ONE-TIME) Completed 01/26/2024 SMOKING STATUS SCREENING (On ce After 26 Yrs) Completed 07/05/2024 HEPATITIS A VACCINES Aged Out No long er eligible based on patient's age to complete this topic HIB VACCINES Aged Out No longer eligi ble based on patient's age to complete this topic MENINGOCOCCAL VACCINES (ACWY) Aged Out No longer eligible based on patient's age to complete this topic MENINGOCOCCAL VACCINES (B) Aged Out N o longer eligible based on patient's age to complete this topic Medical Devices Not on file Procedures Procedure Name Priority Date/Time Associated Diagnosis Comments C-PEPTIDE Routine 07/03/2024 2:11 PM EDT COMPREHENSIVE METABOLIC PANEL Routine 05/19/2023 12:23 PM EDT Age-related osteoporosis without current pathological fracture from Last 3 Months or Most Recently Relevant to Health Maintenance Results * C-peptide (07/03/2024 2:11 PM EDT) us Amira Meyer MD LAB BLOOD ORDERABLES Final Res ult [facility] * Comprehensive metabolic panel (05/19/2023 12:23 PM EDT) SODIUM 136 133 - 146 mmol/L [facility] POTASSIUM 3.7 3.3 - 5.1 mmol/L [facility] CHLORIDE 101 96 - 108 mmol/L [facility] CO2 26 21 - 35 mmol/L [facility] BUN 10 6 - 19 mg/dL [facility] CREATININE 0.70 0.5 - 1.5 mg/dL [facility] GLUCOSE 88 70 - 99 mg/dL [facility] ALBUMIN 4.2 3.9 - 4.8 g/dL [facility] TOTAL PROTEIN 7.2 6.5 - 8.0 g/dL [facility] CALCIUM 9.2 8.4 - 10.3 mg/dL [facility] ALKALINE PHOSPHATASE 59 39 - 117 U/L [facility] TOTAL BILIRUBIN 0.6 0.0 - 1.2 mg/dL [facility] AST 22 0 - 37 U/L [facility] ALT 13 0 - 40 U/L [facility] GLOBULIN 3.0 1 - 4.8 g/dL [facility] EGFR 95 >59 mL/min/1.7 3m2 [facility] Comment:Estimated glomerular filtration rate calculated using the CKD-EPI refit equation. ANION GAP 13 10 - 20 mmol/L [facility] Blood 05/19/2023 12:2 3 PM EDT 05/19/2023 12:34 PM EDT us Amira Meyer MD LAB BLOOD ORDERABLES Final Res ult [address] [address] from Last 3 Months or Most Recently Relevant to Health Maintenance Insurance [facility] MEDICARE REPLACEMENT [facility] MEDICARE REPLACEMENT [facility] MEDICARE REPLACEMENT [facility] MEDICARE REPLACEMENT [facility] MEDICARE REPLACEMENT Care Teams User Experience Architect Relationship Specialty Start Date End Date Arline Pringle MD [address] [facility] [address] [place] [phone] PCP - General Family Medicine 05/19/23 Additional Source Comments The information contained in this document represents components of the legal health record. It is not the complete legal health record.[facility]
--- NOTE | 2024-09-08 11:06 | A.OFFVIS_ITS ---
Vital Signs 09/08/24 11:07 Height 5 ft 3 in Weight 143 lb BMI 25.3 BP 144/69 H Blood Pressure Location Lt brachial Position Sitting Respiration 16 Pulse 61 Pulse Source Pulse Oximeter Pulse Oximetry (%) 99 Oxygen Delivery Method Room Air Intake Visit Reasons: Lumbar back pain/sciatica pain Veneer Marker Required: No Accompanied by: Self / Same As Patient Allergies No Known Allergies Allergy (Verified 09/08/24 11:09) HPI HPI Lumbar back pain/sciatica pain: Details: History of Present Illness The patient is a 68-year-old female presenting with chronic low back pain with radiculopathy. The pain is described as an aching and burning sensation in the lower back, radiating down the left leg in the distribution of the sciatic nerve. The pain intensity is rated at 7/10, worsening after prolonged standing or sitting, and improving to 0/10 when lying on her back. She has undergone physical therapy, which improved her symptoms significantly, reducing the need for a walking stick and alleviating shooting pain. However, she continues to experience a persistent toothache-like pain and stiffness in her knees, particularly after prolonged inactivity. The patient has not had an MRI of her back, and the last MRI was approximately 20 years ago for vertigo-related symptoms. She maintains her exercises at home and participates in [employer], although her activity was impacted by personal circumstances, including the passing of her sister. Pain Description - Onset: Chronic - Quality: Aching and burning sensation - Location: Lower back with radiation to the left leg - Exacerbating factors: Prolonged standing or sitting - Relieving factors: Lying on back - Interference: Affects mobility, previously required a walking stick Physical Exam - Appears afebrile. - Alert and oriented. - Mood and affect appropriate. - Follows and participates in conversation appropriately. - Respiratory effort is unlabored. - Able to transition from sit to stand unassisted. - Ambulates with bilaterally normal heel strike and toe off. - Able to stand and walk on toes and heels. Pain Management - Affect: Pain impacts mobility and daily activities - Analgesia: Pain rated at 7/10, improves to 0/10 when lying down - Activities of Daily Living: Previously required a walking stick, continues exercises at home [facility] Medical History (Updated 09/08/24 @ 11:18 by Jimenez Zimmerman MD) Osteoporosis Lumbar radiculopathy Essential hypertension Drug-induced hypokalemia Hyperlipidemia Physical Exam Vital Signs: Last Vital Signs Pulse 61 09/08/24 11:07 Resp 16 09/08/24 11:07 BP 144/69 H 09/08/24 11:07 Pulse Ox 99 09/08/24 11:07 Oxygen Delivery Method Room Air 09/08/24 11:07 BMI result Body Mass Index 25.3 Assessment & Plan Assessment & Plan (1) Chronic knee pain: Code(s): M25.569 - Pain in unspecified knee; G89.29 - Other chronic pain Category: Medical (2) Lumbar radiculopathy: Code(s): M54.16 - Radiculopathy, lumbar region Category: Medical Plan Plan - Order MRI of the lumbar spine to evaluate the back pain not responsive to formal PT and HEP. - Order knee x-rays to assess stiffness and pain in the knees. - Continue home exercises and [employer] program to maintain mobility. - Use gabapentin as needed for pain management. Patient was informed and verbally consented to the use of an ambient scribe for clinic note documentation during this visit. Discussion Notes I discussed with the patient the need for an MRI of the lumbar spine to better understand the cause of her back pain and radiculopathy. We also talked about obtaining knee x-rays to evaluate the stiffness and pain she experiences. I advised her to continue her home exercise regimen and the [employer] program to help maintain her mobility. Gabapentin was recommended as needed for pain management. Patient Instructions - Schedule and complete the MRI of your lumbar spine. - Get knee x-rays done at your convenience. - Continue with your home exercises and [employer] program. - Take gabapentin as needed for pain relief. Orders: Orders XR knee standing BI Today G89.29 - Other chronic pain, M25.569 - Pain in unspecified knee MR lumbar spine wo con Today M54.16 - Radiculopathy, lumbar region Coding Level of Care Code New Pt Level 4 (78912) Diagnoses Chronic knee pain M25.569; G89.29 Lumbar radiculopathy M54.16
[2024-09-08 11:07] VITALS: BP 144/69; PULSE 61; RESP 16; O2SAT 99; BMI 25.3
== END 2024-09-08 11:34 | disposition home or self-care (01) ==
LOC: HO.PMC 10:55
PROVIDERS: PCP Student in an Organized Health Care Education/Training Program; Referring Provider Student in an Organized Health Care Education/Training Program; Visit Provider Internal Medicine
DX: M25.569 Pain in unspecified knee (principal); G89.29 Other chronic pain; M54.16 Radiculopathy, lumbar region
CPT/HCPCS: 99204

== ENCOUNTER → 2024-09-08 10:54 | Outpatient (BNVA) | payer MEDICARE, SELFPAY | PROVIDERS: PCP Student in an Organized Health Care Education/Training Program; Referring Provider Student in an Organized Health Care Education/Training Program; Visit Provider Internal Medicine | DX: M25.561 Pain in right knee (principal); M25.562 Pain in left knee; G89.29 Other chronic pain; M54.16 Radiculopathy, lumbar region | CPT/HCPCS: 99202 ==

== ENCOUNTER → 2024-10-23 07:50 | Outpatient (BNV) | payer MEDICARE, SELFPAY | PROVIDERS: PCP Student in an Organized Health Care Education/Training Program; Visit Provider Radiology Diagnostic Radiology | DX: M47.26 Other spondylosis with radiculopathy, lumbar region (principal); M17.0 Bilateral primary osteoarthritis of knee | CPT/HCPCS: 72148; 73565 ==

== ENCOUNTER 2024-10-23 07:52 | Outpatient (REF) | payer MEDICARE, SELFPAY ==
--- NOTE | ~2024-10-23 | XR_ITS ---
EXAMINATION: XR KNEE AP STANDING CLINICAL INFORMATION: M25.569 - Pain in unspecified knee COMPARISON: None available. TECHNIQUE: AP bilateral standing view of the knees was obtained. FINDINGS: No acute cortical disruption or gross malalignment. Sclerosis along the articular surface of the tibial plateau with asymmetric joint space narrowing involving mostly the medial compartments of the knees. No lytic or blastic lesions. No subcutaneous edema. No gross vascular calcifications. XR/XR knee standing BI IMPRESSION: Bicompartmental osteoarthrosis/osteoarthritis, involving mostly the medial compartment, mild to moderate. Electronically signed by: Parminder Perla MD 10/23/2024 08:59 AM EDT
--- NOTE | ~2024-10-23 | MR_ITS ---
EXAMINATION: MR LUMBAR SPINE WITHOUT CONTRAST CLINICAL INFORMATION: Radiculopathy, lumbar region. M54.16. COMPARISON: None available. TECHNIQUE: MRI of the lumbar spine was obtained using routine sequences without contrast. FINDINGS: Last rib-bearing vertebra labeled T12. No bone marrow STIR signal abnormality. Marginal osteophyte formation and disc desiccation at L2-3. Decreased intervertebral disc height and signal at L5-S1 and to a lesser extent L4-5. Faint focal hyperintense T2 signal in the posterior intervertebral disc L4-5 likely focal annular fissure. The alignment is normal. Conus medullaris ends at the pedicle of L1 with normal signal. T11-12: No disc herniation. No neuroforamina stenosis. T12-L1: No disc herniation. No neuroforamina stenosis. L1-2: Broad-based disc bulging. Facet joint and ligamentum flavum hypertrophy. No compression upon neural elements. L2-3: Broad-based disc bulging. Facet joint and ligamentum flavum hypertrophy. Reduced AP diameter of the thecal sac. Bilateral neuroforamina narrowing, left greater than the right side. L3-4: Broad-based disc bulging. Facet joint ligamentum flavum hypertrophy. Reduced AP diameter of the thecal sac and bilateral neuroforamina narrowing likely encroaching the neural elements. L4-5: Broad-based disc bulging. Facet joint and ligamentum flavum hypertrophy resulting in central spinal canal stenosis abutting the L5 nerve roots on the lateral recesses. Bilateral neuroforamina narrowing likely encroaching the L4 exiting nerve roots. L5-S1: Broad-based disc bulging. Facet joint and ligamentum flavum hypertrophy resulting in central spinal canal and bilateral neuroforamina stenosis encroaching the S1 and L5 nerve roots. No prevertebral compartment hematoma, mass or fluid collection. Hyperintense T2 cystic lesions in the right kidney. Soft tissue fullness, left adrenal gland. Hypointense T2 signal in the posterior left iliac bone probably sclerotic. . MR/MR lumbar spine wo con IMPRESSION: Multilevel lumbar spondylosis from L2-3 to L5-S1 pronounced at L4-5 and L5-S1 and likely encroaching the neural elements. Electronically signed by: Parminder Perla MD 10/23/2024 08:58 AM EDT
--- OUTSIDE RECORDS SUMMARY | 2024-10-23 07:55 | XMS_ITS | Encounter Summary ---
Author Organization [facility] Address [address] [place] [address] Care Team Providers Care Level Glass Forming Machine Operator Name Role Phone Arline Pringle MD Primary Care Provider [phone] Encounter Details Date Type Department Care Team (Late st Contact Info) Description 03/15/2024 Lab Requisition [facility] - Main Lab [address] [facility] [place] [phone] Brittany Corona MD [address] [place] [phone] Encounter for screening for malignant neoplasm of rectum Social History Tobacco Use Types Packs/Day Years Used Date Smoking Tobacco: Never Smokeless Tobacco: Never Alcohol Use Standard Drinks/Week Comments No 0 (1 standard drink = 0.6 oz pur e alcohol) Comments Unknown Sex and Gender Information Value Date Recorded Sex Assigned at Not on file Legal Sex Female 2:29 PM EST Gender Identity Not on file Sexual Orientation Not on file documented as of this encounter Progress Notes * Brittany Corona MD - 03/15/2024 9:23 AM EST Please let patient know that polyp that was removed was precancerous. Repeat colonoscopy in 5 years. documented in this encounter Plan of Treatment Upcoming Encounters Date Type Department Care Team (Late Contact Info) Description 01/15/2025 11:00 AM EST Appointment Radiology Department [address] [phone] documented as of this encounter Procedures Procedure Name Priority Date/Time Associated Diagnosis Comments TISSUE EXAM Routine 03/14/2024 Encounter for screening for malignant neoplasm of rectum documented in this encounter Results * Tissue Exam (03/14/2024) Final Diagnosis Cecum, polyp: Tubular adenoma. 03/16/2024 10:55 AM [facility] Clinical Information Screening for colorectal malignant neoplasm Polyp 03/16/2024 10:55 AM [facility] Gross Description A. Large Intestine, Cecum, polyp: Labeled cecal polyp . Received in formalin, is an approximately 0.7 cm, in greatest diameters, rubbery, thomas, polypoid tissue, which is inked black at the base, wrapped in paper and submitted in toto in one cassette, one piece, multiple levels. dvb/DG 03/16/2024 10:55 AM [facility] Disclaimer Unless otherwise specified, all tissue is 10% NB formalin fixed and paraffin embedded. 03/16/2024 10:55 AM [facility] Tissue Cecum structure / Unknown 03/14/2024 03/15/2024 9:25 AM EST us Brittany Corona MD LAB PATHOLOGY ORDERABLES Final Result [facility] [address] [place] [address], documented in this encounter Visit Diagnoses Diagnosis Encounter for screening for malignant neoplasm of rectum documented in this encounter Care Teams Level Glass Forming Machine Operator Relationship Specialty Start Date End Date Arline Pringle MD [address] [phone] PCP - General Internal Medicine 01/10/24 documented as of this encounter
--- OUTSIDE RECORDS SUMMARY | 2024-10-23 07:55 | XMS_ITS | Clinical Summary ---
Author Organization [facility] Address [address] [place] [phone] Phone Care Team Providers Care Inspector Outside Production Name Role Phone Arline Pringle MD Primary [...] intake increased. -Repeat DEXA in 01/2026 at [place] Assessment & Plan (05/21/2023 11:06 AM EDT): [...] and fall prevention. Repeat DEXA at previous location-[facility], patient will schedule. Check labs. Vitamin [...] with history of kidney stones. See above. Social History Tobacco Use Types Packs/Day Years [...] 9:40 AM EST Office Visit [facility] [address] [place] [address] [place] [address] Amira Meyer MD [address] [place] [phone] [email or web address] Health Maintenance Due Date Last Done Comments Adult Td,Tdap Booster 1955 LIPID PANEL 1956 DEPRESSION SCREENING 1968 HEPATITIS C SCREENING 1974 COLOGUARD 2001 COLONOSCOPY 2001 COLORECTAL CANCER SCREENING 2001 FIT TEST 2001 FOBT 2001 SIGMOIDOSCOPY 2001 VIRTUAL COLONOSCOPY 2001 PNEUMOCOCCAL VACCINES (50+ years) (1 of 1 - PCV) 2006 ZOSTER VACCINES (1 of 2) 2006 MAMMOGRAM 11/21/2021 11/22/2019 POTASSIUM LEVEL 05/18/2024 05/19/2023 INFLUENZA VACCINE (#1) 2024 COVID-19 VACCINE ( - 2023-2 5 season) 2024 CREATININE LEVEL 02/20/2025 02/21/2024, 05/19/2023 SCREENING FOR [...] Procedure Name Priority Date/Time Associated Diagnosis Comments COMPREHENSIVE METABOLIC PANEL Routine 05/19/2023 12:23 PM EDT Age-related osteoporosis without current pathological fracture from Last 3 Months or Most Recently Relevant to Health Maintenance Results * Comprehensive metabolic panel (05/19/2023 12:23 PM EDT) SODIUM 136 133 - 146 mmol/L [facility] POTASSIUM 3.7 3.3 - 5.1 mmol/L [facility] CHLORIDE 101 96 - 108 mmol/L [facility] CO2 26 21 - 35 mmol/L [facility] BUN 10 6 - 19 mg/dL [facility] CREATININE 0.70 0.5 - 1.5 mg/dL [facility] GLUCOSE 88 70 - 99 mg/dL [facility] ALBUMIN 4.2 3.9 - 4.8 g/dL [facility] TOTAL PROTEIN 7.2 6.5 - 8.0 g/dL [facility] CALCIUM 9.2 8.4 - 10.3 mg/dL [facility] ALKALINE PHOSPHATASE 59 39 - 117 U/L [facility] TOTAL BILIRUBIN 0.6 0.0 - 1.2 mg/dL [facility] AST 22 0 - 37 U/L [facility] ALT 13 0 - 40 U/L [facility] GLOBULIN 3.0 1 - 4.8 g/dL [facility] EGFR 95 >59 mL/min/1.7 3m2 [facility] Comment:Estimated glomerular filtration rate calculated using the CKD-EPI refit equation. ANION GAP 13 10 - 20 mmol/L [facility] Blood 05/19/2023 12:2 3 PM EDT 05/19/2023 12:34 PM EDT us Amira Meyer MD LAB BLOOD ORDERABLES Final Res ult [address] [address] from Last 3 Months or Most Recently Relevant to Health Maintenance Insurance [facility] [employer] MEDICARE REPLACEMENT [place] [address] [address] MEDICARE REPLACEMENT [facility] MEDICARE REPLACEMENT [facility] MEDICARE REPLACEMENT [place] [id number] [place] [address] MEDICARE REPLACEMENT Care Teams Inspector Outside Production Relationship Specialty Start Date End Date Arline Pringle MD [address] [phone] PCP - General Family Medicine 05/19/23 Additional Source Comments The information contained in this document represents components of the legal health record. It is not the complete legal health record.[facility]
--- OUTSIDE RECORDS SUMMARY | 2024-10-23 07:55 | XMS_ITS | Clinical Summary ---
Author Organization [address] Address [address] [place] [phone] Phone Care Team Providers Care Automotive Service Porter Name Role Phone Arline Pringle MD Primary Care Provider [phone]- [phone] Surgical History Surgery Date Site/Laterality Comments SECTION [...] 11:00 AM EST Appointment Radiology Department - [address] [phone] Health Maintenance Due Date Last Done Comments Pneumococcal Vaccine: 50+ Years (1 of 1 - PCV) 2006 Cholesterol Screening (Lipid Panel) 01/14/2022 Falls Risk Assessment 01/14/2022 Hepatitis C Screening 01/14/2022 Medicare Annual Wellness Visit 01/14/2022 Social Influencers of Health Screening 01/14/2022 Depression Screening 02/16/2024 Hypertension/CHF/CAD Annual BMP Blood Test 05/18/2024 05/19/2023 COVID-19 Vaccine (5 - 2025-26 season) 2024 01/31/2022, 01/31/2021, 06/06/2020, Additional history exists Influenza Vaccine (#1) 2024 11/15/2016, 2015 Breast [...] Signed Date: 01/26/2024 18:11 ET Workstation ID: [id number] Transcribed By: Self Edit Transcribed Date: 01/26/2024 18:09 ET Narrative 01/26/2024 6:11 PM EST STUDY: DUAL ENERGY X-RAY ABSORPTIOMETRY / DXA REASON FOR EXAM: Female, 68 years old m81.0 TECHNIQUE: Bone Mineral Density (BMD) measurements of the lumbar spine and left hip were obtained using [employer] Discovery W (S/N [id number]). COMPARISON: May 28, 2020 FINDINGS: L1-L4 BMD: [...] lumbar spineand left hip were obtained using [employer] Discovery W (S/N [id number]). COMPARISON: May 28, 2020 FINDINGS: L1-L4 BMD: [...] Zuñiga Reviewed and Electronically Signed By: Yao Zuiñga Signed Date: 01/26/2024 18:11 ET Workstation ID: [id number] Transcribed By: Self Edit Transcribed Date: 01/26/2024 [...] Maintenance Insurance [employer] MEDICARE Care Teams Automotive Service Porter Relationship Specialty Start Date End Date Arline Pringle MD [address] [phone] PCP - General Internal Medicine 01/10/24
== END 2024-10-23 07:53 | disposition home or self-care (01) ==
LOC: HO.MRI 07:52
PROVIDERS: PCP Student in an Organized Health Care Education/Training Program; Visit Provider Internal Medicine
DX: M54.16 Radiculopathy, lumbar region (principal); G89.29 Other chronic pain; M25.561 Pain in right knee; M25.562 Pain in left knee
CPT/HCPCS: 72148; 73565

== ENCOUNTER 2024-11-03 11:21 | Outpatient (AMB) | payer MEDICARE, SELFPAY ==
[2024-11-03 11:30] VITALS: BP 140/78; PULSE 80; RESP 16; O2SAT 97; BMI 24.8
--- NOTE | 2024-11-03 11:30 | MHC.OFFVIS ---
Vital Signs 11/03/24 11:30 Height 5 ft 3 in Weight 140 lb BMI 24.8 BP 140/78 H Blood Pressure Location Lt brachial Position Sitting Respiration 16 Pulse 80 Pulse Source Pulse Oximeter Pulse Oximetry (%) 97 Oxygen Delivery Method Room Air Intake Visit Reasons: MRI FOLLOW UP Creamery Worker Required: No Accompanied by: Spouse Allergies No Known Allergies Allergy (Verified 11/03/24 11:32) Medication List - Last Reconciled 11/03/24 by Luz Marina Van LPN alendronate 70 mg PO QWEEK gabapentin 100 mg PO TID hydrochlorothiazide 12.5 mg PO DAILY lisinopril 40 mg PO DAILY rosuvastatin 10 mg PO DAILY HPI HPI MRI FOLLOW UP: Details: History of Present Illness The patient is a 68-year-old female presenting with left hip pain. The pain is described as a constant ache on the left side, particularly in the hip area, and is exacerbated by sitting, such as in a car or while seated for extended periods. The discomfort varies between mild discomfort and more pronounced pain. The patient has undergone an MRI, which did not reveal any clear nerve compression that could explain the symptoms. There is mention of degenerative changes in the spine, which are typical for her age and not considered severe. Additionally, the patient reports osteoarthritis in the knee, more pronounced on the right side, which could be managed with cortisone injections or platelet-rich plasma therapy, though the latter is not covered by insurance. Pain Description - Onset and Timing: Constant ache in the left hip area, exacerbated by sitting. - Quality and Character: Discomfort varies between mild discomfort and pain. - Primary Location: Left hip area. - Exacerbating Factors: Sitting for extended periods, such as in a car. Physical Exam - Appears afebrile. - Alert and oriented. - Mood and affect appropriate. - Follows and participates in conversation appropriately. - Respiratory effort is unlabored. Results - MRI: No clear nerve compression identified. - Imaging: Degenerative changes in the spine noted, typical for age. Pain Management - Affect: Pain impacts daily activities, particularly when sitting. - Analgesia: Discussion of potential injections for diagnostic purposes. - Activities of Daily Living: Pain interferes with sitting for extended periods. [facility] Medical History (Updated 11/07/24 @ 13:23 by Jimenez Zimmerman MD) Osteoporosis Lumbar radiculopathy Essential hypertension Drug-induced hypokalemia Hyperlipidemia Physical Exam Vital Signs: Last Vital Signs Pulse 80 11/03/24 11:30 Resp 16 11/03/24 11:30 BP 140/78 H 11/03/24 11:30 Pulse Ox 97 11/03/24 11:30 Oxygen Delivery Method Room Air 11/03/24 11:30 BMI result Body Mass Index 24.8 Assessment & Plan Assessment & Plan (1) Chronic knee pain: Code(s): M25.569 - Pain in unspecified knee; G89.29 - Other chronic pain Category: Medical (2) Chronic hip pain: Code(s): M25.559 - Pain in unspecified hip; G89.29 - Other chronic pain Category: Medical (3) Sacroiliac dysfunction: Code(s): M53.3 - Sacrococcygeal disorders, not elsewhere classified Category: Medical Plan Plan Patient was informed and verbally consented to the use of an ambient scribe for clinic note documentation during this visit. 1. Left Low Back/Hip Pain - Consider diagnostic hip vs. SIJ injections to determine the source of pain. - Continue with physical therapy and exercises as an alternative management strategy. 2. Degenerative Changes In The Spine - Monitor degenerative changes; no immediate intervention required as changes are typical for age. 3. Osteoarthritis Of The Knee - Consider cortisone injections for symptomatic relief. - Discuss platelet-rich plasma therapy as an option, noting it is not covered by insurance. Discussion Notes During the consultation, we discussed the patient's left hip pain and the potential for diagnostic injections to identify the pain source. We also reviewed the degenerative changes in the spine, which are typical for her age, and the osteoarthritis in the knee, with options for cortisone injections or platelet-rich plasma therapy. The patient was informed that platelet-rich plasma therapy is not covered by insurance. Patient Instructions - Consider diagnostic injections to help identify the source of hip pain. - Continue with physical therapy and exercises to manage hip pain. - Discuss with your healthcare provider about cortisone injections for knee pain relief. - Consider platelet-rich plasma therapy for knee pain, understanding it is not covered by insurance. Coding Level of Care Code Est Pt Level 3 (84822) Diagnoses Chronic knee pain M25.569; G89.29 Chronic hip pain M25.559; G89.29 Sacroiliac dysfunction M53.3
--- OUTSIDE RECORDS SUMMARY | 2024-11-03 12:01 | XMS_ITS | Encounter Summary ---
Author Organization [facility] Address [address] [place] [address] Care Team Providers Care Bindery Supervisor Name Role Phone Arline Pringle MD Primary Care Provider Encounter Details Date Type Department Care Team (Late Contact Info) Description 03/15/[address] [facility] - Main Lab [address] [place] [phone] Brittany Corona MD [address] [address] Encounter for screening for malignant neoplasm of [...] 01/15/2025 11:00 AM EST Appointment Radiology Department [address] [phone] documented as of this encounter Procedures Procedure Name Priority Date/Time Associated Diagnosis Comments TISSUE EXAM Routine 03/14/2024 Encounter for screening for malignant neoplasm of rectum documented in this encounter Results * Tissue Exam (03/14/2024) Final Diagnosis Cecum, polyp: Tubular adenoma. 03/16/2024 10:55 AM [facility] Clinical Information Screening for colorectal malignant neoplasm Polyp 03/16/2024 10:55 AM [facility] Gross Description A. Large Intestine, Cecum, polyp: Labeled cecal polyp . Received in formalin, is an approximately 0.7 cm, in greatest diameters, rubbery, thomas, polypoid tissue, which is inked black at the base, wrapped in paper and submitted in toto in one cassette, one piece, multiple levels. dvb/DG 03/16/2024 10:55 AM [facility] Disclaimer Unless otherwise specified, all tissue is 10% NB formalin fixed and paraffin embedded. 03/16/2024 10:55 AM [facility] Tissue Cecum structure / Unknown 03/14/2024 03/15/2024 9:25 AM EST Brittany Corona MD LAB PATHOLOGY ORDERABLES Final Result [facility] [address] [place] [address], documented in this encounter Visit Diagnoses Diagnosis Encounter for screening for malignant neoplasm of rectum documented in this encounter Care Teams Bindery Supervisor Relationship Specialty Start Date End Date Arline Pringle MD [address] [phone] PCP - General Internal Medicine 01/10/24 documented as of this encounter
--- OUTSIDE RECORDS SUMMARY | 2024-11-03 12:01 | XMS_ITS | Clinical Summary ---
Author Organization [address] Address [address] [place] [phone] Phone Care Team Providers Care Cover Inspector Name Role Phone Arline Pringle MD Primary Care Provider [phone]- [phone] Surgical History Surgery Date Site/Laterality Comments SECTION [...] 11:00 AM EST Appointment Radiology Department - [address] [phone] Health Maintenance Due Date Last Done Comments [...] Signed Date: 01/26/2024 18:11 ET Workstation ID: [id number] Transcribed By: Self Edit Transcribed Date: 01/26/2024 18:09 ET Narrative 01/26/2024 6:11 PM EST STUDY: DUAL ENERGY X-RAY ABSORPTIOMETRY / DXA REASON FOR EXAM: Female, 68 years old m81.0 TECHNIQUE: Bone Mineral Density (BMD) measurements of the lumbar spine and left hip were obtained using [employer] Discovery W (S/N [id number]). COMPARISON: May 28, 2020 FINDINGS: L1-L4 BMD: [...] lumbar spineand left hip were obtained using [employer] Discovery W (S/N 88268). COMPARISON: May 28, 2020 FINDINGS: L1-L4 BMD: [...] Signed Date: 01/26/2024 18:11 ET Workstation ID: [id number] Transcribed By: Self Edit Transcribed Date: 01/26/2024 [...] Maintenance Insurance [employer] MEDICARE Care Teams Cover Inspector Relationship Specialty Start Date End Date Arline Pringle MD [address] [phone] PCP - General Internal Medicine 01/10/24
--- OUTSIDE RECORDS SUMMARY | 2024-11-03 12:01 | XMS_ITS | Encounter Summary ---
Author Organization [facility] Address [address] [phone] Phone Care Team Providers Care Industrial Pipefitter Journeyman Name Role Phone Arline Pringle MD Primary Care Provider Encounter Details Date Type Department Care Team (Late st Contact Info) Description 10/26/2024 Orders Only [facility] [address] [place] [address] Leisa Colin, MARGUERITE [address] [place] [address] [email or web address] Goiter; Age-related osteoporosis without current pathological fracture; Vitamin D deficiency, unspecified Social History Tobacco Use Types Packs/Day Years Used Date Smoking Tobacco: Never Smokeless Tobacco: Never Alcohol Use Standard Drinks/Week Comments Never 0 [...] PM EDT Sexual Orientation Not on file documented as of this encounter Plan of Treatment Upcoming Encounters Date Type Department Care Team (Late st Contact Info) Description 04/18/2025 9:40 AM EST Office Visit [facility] [address] [place] [phone] Amira Meyer MD 22 [facility] [address] [place] [address] documented as of this encounter Procedures Procedure Name Priority Date/Time Associated Diagnosis Comments TSH WITH REFLEX Routine 10/18/2024 9:21 AM EDT Goiter 25-OH VITAMIN D Routine 10/18/2024 9:20 AM EDT Age-related osteoporosis without current pathological fracture Vitamin D deficiency, unspecified COMPREHENSIVE METABOLIC PANEL Routine 10/18/2024 9:20 AM EDT Age-related osteoporosis without current pathological fracture Vitamin D deficiency, unspecified documented in this encounter Results * TSH with reflex (10/18/2024 9:21 AM EDT) Blood us Amira Meyer MD LAB BLOOD ORDERABLES Final Res ult Performing Organization Address [facility] Co de Phone Number [address] [address] * 25-OH vitamin D (10/18/2024 9:20 AM EDT) Blood us Amira Meyer MD LAB BLOOD ORDERABLES Final Res ult Performing Organization Address [facility] Co de Phone Number [address] [address] * Comprehensive metabolic panel (10/18/2024 9:20 AM EDT) Blood us Amira Meyer MD LAB BLOOD ORDERABLES Final Res ult Performing Organization Address [facility]/ZIP Co de Phone Number [facility] [address] [place] [address] documented in this encounter Visit Diagnoses Diagnosis Goiter Goiter, unspecified Age-related osteoporosis without current pathological fracture Vitamin D deficiency, unspecified documented in this encounter Care Teams Industrial Pipefitter Journeyman Relationship Specialty Start Date End Date Arline Pringle MD 3640 [facility] [address] [place] [address] PCP - General Family Medicine 05/19/23 documented as of this encounter Additional Source Comments The information contained in this document represents components of the legal health record. It is not the complete legal health record.[facility]
--- OUTSIDE RECORDS SUMMARY | 2024-11-03 12:01 | XMS_ITS | Clinical Summary ---
Author Organization [facility] Address [address] [place] [phone] Phone Care Team Providers Care Joint Creaser Name Role Phone Arline Pringle MD Primary [...] intake increased. -Repeat DEXA in 01/2026 at [place] Assessment & Plan (05/21/2023 11:06 AM EDT): [...] and fall prevention. Repeat DEXA at previous location-[facility], patient will schedule. Check labs. [...] Encounters Date Type Department Care Team Description 10/26/2024 Orders Only [facility] [address] [place] [address] [place] [address] Leisa Colin, MARGUERITE Goiter; Age-related osteoporosis without current pathological fracture; Vitamin D deficiency, unspecified from Last 3 Months Social History Tobacco [...] 9:40 AM EST Office Visit [facility] [address] [place] [phone] Amira Meyer MD [address] [place] [phone] [email or web address] Health Maintenance Due Date Last Done Comments Adult Td,Tdap Booster 1956 LIPID PANEL 1956 DEPRESSION SCREENING 1968 HEPATITIS C SCREENING 1974 COLOGUARD 2001 COLONOSCOPY 2001 COLORECTAL CANCER SCREENING 2001 FIT TEST 2001 FOBT 2001 SIGMOIDOSCOPY 2001 VIRTUAL COLONOSCOPY 2001 PNEUMOCOCCAL VACCINES (50+ years) (1 of 1 - PCV) 2006 ZOSTER VACCINES (1 of 2) 2006 POTASSIUM LEVEL 05/18/2024 05/19/2023 INFLUENZA VACCINE (#1) 2024 COVID-19 VACCINE (1 - 2023-2 5 season) 2024 MAMMOGRAM 04/21/2025 04/22/2023, 11/22/2019 CREATININE LEVEL 10/18/2025 10/18/2024, 02/21/2024, 05/19/2023 SCREENING FOR DIABETES 05/18/2026 05/19/2023 [...] D deficiency, unspecified COMPREHENSIVE METABOLIC PANEL Routine 05/19/2023 12:23 PM EDT Age-related osteoporosis without current pathological fracture from Last 3 Months or Most Recently Relevant to Health Maintenance Results * TSH with reflex (10/18/2024 9:21 AM EDT) Blood Amira Meyer MD LAB BLOOD ORDERABLES Final Res ult Performing Organization Address [facility] de Phone Number [address] [address] * 25-OH vitamin D (10/18/2024 9:20 AM EDT) Blood Amira Meyer MD LAB BLOOD ORDERABLES Final Res ult Performing Organization Address [facility] de Phone Number [address] [phone] * Comprehensive metabolic panel (10/18/2024 9:20 AM EDT) Only the most recent of2 resultswithin the time period is included. Blood Amira Meyer MD LAB BLOOD ORDERABLES Final Res ult Performing Organization Address [facility] de Phone Number [address] [phone] from Last 3 Months or Most Recently Relevant to Health Maintenance [place] [address] [place] [address] MEDICARE REPLACEMENT [facility] MEDICARE REPLACEMENT [facility] MEDICARE REPLACEMENT [facility] MEDICARE REPLACEMENT [facility] MEDICARE REPLACEMENT Care Teams Joint Creaser Relationship Specialty Start Date End Date Arline Pringle MD [address] [phone] PCP - General Family Medicine 05/19/23 Additional Source Comments The information contained in this document represents components of the legal health record. It is not the complete legal health record.[facility]
== END 2024-11-03 12:12 | disposition home or self-care (01) ==
LOC: HO.PMC 11:21
PROVIDERS: PCP Student in an Organized Health Care Education/Training Program; Visit Provider Internal Medicine
DX: M25.569 Pain in unspecified knee (principal); G89.29 Other chronic pain; M25.559 Pain in unspecified hip; M53.3 Sacrococcygeal disorders, not elsewhere classified
CPT/HCPCS: 99213

== ENCOUNTER → 2024-11-03 11:21 | Outpatient (BNVA) | payer MEDICARE, SELFPAY | PROVIDERS: PCP Student in an Organized Health Care Education/Training Program; Visit Provider Internal Medicine | DX: M25.552 Pain in left hip (principal); M25.569 Pain in unspecified knee; M53.3 Sacrococcygeal disorders, not elsewhere classified; G89.29 Other chronic pain | CPT/HCPCS: 99212 ==